=== PATIENT | female | born 1995 | race Caucasian/White ===

== ENCOUNTER 2017-10-21 19:40 | Emergency (ER) | payer OTHER ==
[2017-10-21] MEDS ORDERED: solu-MEDROL 125 MG IV ONE (20:06)
[2017-10-21] MEDS ORDERED: ATARAX 25 MG PO ONE (20:07)
[2017-10-21] MEDS ORDERED: ATARAX 25 MG ONE (20:11)
[2017-10-21] MEDS ORDERED: solu-MEDROL 125 MG ONE (20:11)
--- NOTE | 2017-10-21 20:13 | ERPHSYRPT ---
- History of Present Illness Time Seen by Provider: 10/21/17 20:00 Source: patient Exam Limitations: no limitations Patient Subjective Stated Complaint: had nexplenon implanted to right upper arm 2 weeks ago, since then has had rash that has slowly worsening Triage Nursing Assessment: rash to full body, itching and burning per pt, c/o soa over last 2 days Physician History: PT HAD A CONTROL DEVICE IMPLANTED IN HER RIGHT ARM 2 WEEKS AGO. LAST NIGHT PT DEVELOPED A RASH WHICH PROGRESSIVELY WORSENED TODAY WITH ITCHING AND SOME SHORTNESS OF AIR/TIGHTNESS IN THE NECK. PT DENIES CHEST PAIN, ABDOMINAL PAIN, NAUSEA, VOMITING. Allergies/Adverse Reactions: No Known Drug Allergies Allergy (Verified 06/02/16 08:29) Home Medications: Phentermine HCl [Adipex-P] 1 tab PO QDP PRN 10/21/17 [History] Hx Tetanus, Diphtheria Vaccination/Date Given: Yes Hx Influenza Vaccination/Date Given: No Hx Pneumococcal Vaccination/Date Given: No Immunizations Up to Date: Yes - Review of Systems Ears, Nose, & Throat: Other (TIGHTNESS IN THE NECK) Respiratory: Dyspnea Skin: Pruritis, Rash All Other Systems: Reviewed and Negative - Past Medical History Pertinent Past Medical History: Yes Neurological History: No Pertinent History ENT History: No Pertinent History Cardiac History: No Pertinent History Respiratory History: No Pertinent History Endocrine Medical History: No Pertinent History Musculoskeletal History: No Pertinent History GI Medical History: No Pertinent History History: Other Psycho-Social History: No Pertinent History Female Reproductive Disorders: No Pertinent History Other Medical History: frequent UTI's - Past Surgical History Past Surgical History: Yes Neuro Surgical History: No Pertinent History Cardiac: Cardiac Catheterization Respiratory: No Pertinent History Gastrointestinal: No Pertinent History Genitourinary: No Pertinent History Musculoskeletal: No Pertinent History Female Surgical History: No Pertinent History Other Surgical History: had hx of SVT approx age 11-12 rx x 1 h no further problems since then - Social History Smoking Status: Former smoker How long have you smoked: 4 yrs Exposure to second hand smoke: No Alcohol Use: None Drug Use: none Patient Lives Alone: No - Female History Hx Last Menstrual Period: 10/14/2017 Hx Now: No - Nursing Vital Signs Nursing Vital Signs: Initial Vital Signs Temperature 98.8 F 10/21/17 19:44 Pulse Rate 102 H 10/21/17 19:44 Respiratory Rate 20 10/21/17 19:44 Blood Pressure 116/76 10/21/17 19:44 O2 Sat by Pulse Oximetry 97 10/21/17 19:44 Pain Scale Pain Intensity 0 - Physical Exam General Appearance: alert Eye Exam: PERRL/EOMI Ears, Nose, Throat Exam: TMs normal, pharynx normal, moist mucous membranes, other (NO PHARYNGEAL EDEMA) Neck Exam: normal inspection Respiratory Exam: wheezing (MINIMAL EXPIRATORY WHEEZE OVER LEFT POSTERIOR FIELD) Cardiovascular Exam: normal heart sounds Gastrointestinal/Abdomen Exam: soft, normal bowel sounds Back Exam: normal range of motion Extremity Exam: other (IMPLANT PALPATED OVER THE DISTAL MEDIAL ASPECT OF THE RIGHT ARM AND WAS NON-TENDER AND WITHOUT EDEMA.) Neurologic Exam: alert, cooperative Skin Exam: rash (HIVES OVER TRUNK, NECK AND EXTREMITIES) SpO2 Interpretation: normal SpO2: 97 Oxygen Delivery: Room Air - Course Nursing assessment & vital signs reviewed: Yes Ordered Tests: Active Orders 24 hr Category Date Time Status IV Insertion STAT Care 10/21/17 20:06 Active Medication Summary Generic Name Dose Route Start Last Admin Trade Name Freq PRN Reason Stop Dose Admin Levalbuterol HCl 1.25 mg 10/21/17 20:19 Xopenex 1.25 Mg/0.5 Ml Ud Nebule IH 10/21/17 20:20 STAT ONE Discontinued Medications Generic Name Dose Route Start Last Admin Trade Name Freq PRN Reason Stop Dose Admin Hydroxyzine HCl 50 mg 10/21/17 20:07 10/21/17 20:16 Atarax 25 Mg PO 10/21/17 20:08 50 mg STAT ONE Administration Hydroxyzine HCl Confirm 10/21/17 20:11 Atarax 25 Mg Administered 10/21/17 20:12 Dose 50 mg .ROUTE .STK-MED ONE Methylprednisolone Sodium Succinate 125 mg 10/21/17 20:06 10/21/17 20:16 Solu-Medrol 125 Mg IV 10/21/17 20:07 125 mg STAT ONE Administration Methylprednisolone Sodium Succinate Confirm 10/21/17 20:11 Solu-Medrol 125 Mg Administered 10/21/17 20:12 Dose 125 mg .ROUTE .STK-MED ONE - Progress Discussed with Dr.: Khan (WILL COME IN TO SEE PT AND REMOVE CONTROL IMPLANT.) - Departure Time of Disposition: 20:22 Departure Disposition: Home Clinical Impression: ALLERGIC REACTION TO CONTROL IMPLANT Condition: Stable Critical Care Time: No Referrals: JOSE PICKENS MD [Primary Care Provider] - Instructions: Hives Additional Instructions: FOLLOW UP WITH PRIVATE DOCTOR TOMORROW. Prescriptions: Hydroxyzine HCl 25 mg [Atarax 25 mg] 25 mg PO Q4H PRN PRN #30 tablet PRN Reason: Itching Methylprednisolone [Medrol Dose Pack] 4 mg PO UD #1 pack
[2017-10-21] MEDS ORDERED: XYLOCAINE 1%/Epi 1:100000 MDV 20 ML ONE (20:18)
[2017-10-21] MEDS ORDERED: Xopenex 1.25 MG/0.5 ML UD NEBULE IH ONE ×2 (20:19→20:38)
[2017-10-21] MEDS ORDERED: XYLOCAINE 1% HCL 20 ML MDV ONE (20:23)
[2017-10-21] MEDS ORDERED: Sodium Chloride 3 ML UD NEBULES IH ONE (20:39)
[2017-10-21] MEDS ORDERED: XYLOCAINE 1% HCL 20 ML MDV IJ ONE (20:41)
[2017-10-21 20:51] VITALS: PULSE 86; O2SAT 98
[2017-10-21 20:59] VITALS: BP 105/59
--- NOTE | 2017-10-22 17:12 | PCM.NOTE ---
Date and Time: 10/22/171706 OBJECTIVE DATA Vital Signs: Vital Signs - 24 hr Temp Pulse Resp BP Pulse Ox 10/21/17 20:58 86 16 105/59 98 10/21/17 20:46 86 18 98 10/21/17 20:22 97 10/21/17 20:19 96 H 16 122/75 98 10/21/17 19:44 98.8 F 102 H 20 116/76 97 Pain Assessment - Last Documented Pain Intensity 0 Pain Scale Used 0-10 Pain Scale Intake and Output: Intake & Output 10/20/17 10/21/17 10/22/17 10/23/17 11:59 11:59 11:59 11:59 Weight 72.575 kg Assessment/Plan (1) Allergic reaction caused by a drug Status: Acute Assessment & Plan: this is a late entry note procedure preformed at 20:15 10/21/17 She was found to be having an allergic reaction only new medication or change was nexplanon placed 2 weeks ago. I was contacted by Dr. Evans to consult to remove in ED Discussed with patient and elected for removal. area was prepped with Chlorhexidine gluconate 1 mL of 1% lidocaine was used over the proximal end of the device for anesthesia 11 blade was used for stab wound and nexplanon was expressed intact with no complications the area was covered with steri strip and compresion bandage. Tolerated well with no complications. Discussed she is now fertile and could become and recommend f/u for discussion of other contraception options and remain abstinence or use condoms until then. Dr. Evans will finish treating her symptoms of allergic reaction. Code(s): T78.40XA - ALLERGY, UNSPECIFIED, INITIAL ENCOUNTER
== END 2017-10-21 20:59 | disposition home or self-care (01) ==
LOC: ED 19:40
DX: L50.9 Urticaria, unspecified (principal); T38.5X5A Adverse effect of other estrogens and progestogens, initial encounter
CPT/HCPCS: 36000; 94640; 96374; 99284; J2930; A9270-GY

== ENCOUNTER 2019-01-02 18:54 | Emergency (ER) | payer OTHER ==
[2019-01-02] MEDS ORDERED: Sodium Chloride 0.9% 1000 ML 1,000 ML IV SCH (19:45)
--- NOTE | 2019-01-02 19:56 | ERPHSYRPT ---
- History of Present Illness Time Seen by Provider: 01/02/19 19:35 Historian: patient Exam Limitations: clinical condition Patient Subjective Stated Complaint: Pelvic pain/flank pain Triage Nursing Assessment: Patient ambulated back to ED and transferred self to bed. Patient A+O X 3. Patient complains of pelvic and flank pain since this morning that is Patient states at times the pain is 10/10, but currently pain is 5/10. Patient's skin pink, warm and dry. Patient states she is unsure of last menstual cycle and was a month late on her depo shot. Patient denies dysuria or frequency. Physician History: PATIENT COMPLAINS OF LOWER ABDOMINAL PAIN AND LOW BACK PAIN TODAY. DENIES FEVER , NAUSEA, EMESIS, URINARY SYMPTOMS, DYSURIA, URGENCY, HEMATURIA. HAS MISSED HER DEPO INJECTION THIS PAST MONTH SINCE 11/08/2018. HAS CHRONIC BROWN VAGINAL DISCHARGE FOR YEARS. LAST MENSTRUAL PERIOD UNKNOWN WHILE DEPO INJECTIONS. Timing/Duration: today Activities at Onset: none Quality: cramping, stabbing Abdominal Pain Onset Location: flank, other (PELVIC) Pain Radiation: no radiation Severity of Pain-Max: moderate Severity of Pain-Current: moderate Modifying Factors: Improves With: nothing Associated Symptoms: back (PAIN) Previous symptoms: no prior history Allergies/Adverse Reactions: No Known Drug Allergies Allergy (Verified 01/02/19 19:29) Home Medications: Amphet Asp/Amphet/D-Amphet [Adderall 30 mg Tablet] 1 tab PO DAILY 01/02/19 [ History] Hx Tetanus, Diphtheria Vaccination/Date Given: Yes Hx Influenza Vaccination/Date Given: No Hx Pneumococcal Vaccination/Date Given: No Immunizations Up to Date: Yes - Review of Systems Constitutional: No Fever, No Chills Eyes: No Symptoms Ears, Nose, & Throat: No Symptoms Respiratory: No Symptoms, No Cough, No Dyspnea Cardiac: No Symptoms, No Chest Pain, No Edema, No Syncope Abdominal/Gastrointestinal: Other (PELVIC PAIN, CHRONIC VAGINAL DISCHARGE), No Abdominal Pain, No Nausea, No Vomiting, No Diarrhea Genitourinary Symptoms: Flank Pain, Vaginal Discharge, No Dysuria Musculoskeletal: No Symptoms, No Back Pain, No Neck Pain Skin: No Rash Neurological: No Dizziness, No Focal Weakness, No Sensory Changes Psychological: No Symptoms Endocrine: No Symptoms All Other Systems: Reviewed and Negative - Past Medical History Pertinent Past Medical History: Yes Neurological History: No Pertinent History ENT History: No Pertinent History Cardiac History: No Pertinent History Respiratory History: No Pertinent History Endocrine Medical History: No Pertinent History Musculoskeletal History: No Pertinent History GI Medical History: No Pertinent History History: Other Psycho-Social History: No Pertinent History Female Reproductive Disorders: No Pertinent History Other Medical History: frequent UTI's - Past Surgical History Past Surgical History: Yes Neuro Surgical History: No Pertinent History Cardiac: Cardiac Catheterization Respiratory: No Pertinent History Gastrointestinal: No Pertinent History Genitourinary: No Pertinent History Musculoskeletal: No Pertinent History Female Surgical History: No Pertinent History Other Surgical History: had hx of SVT approx age 11-12 rx x 1 h no further problems since then - Social History Smoking Status: Current every day smoker How long have you smoked: 4 yrs Exposure to second hand smoke: No Alcohol Use: None Drug Use: none Patient Lives Alone: No - Female History Hx Last Menstrual Period: unsure d/t depo injection Hx Now: (unsure) - Nursing Vital Signs Nursing Vital Signs: Initial Vital Signs Temperature 98.0 F 01/02/19 19:31 Pulse Rate 102 H 01/02/19 19:31 Respiratory Rate 18 01/02/19 19:31 Blood Pressure 106/72 01/02/19 19:31 O2 Sat by Pulse Oximetry 100 01/02/19 19:31 Pain Scale Pain Intensity 3 - Physical Exam General Appearance: no apparent distress, alert Eye Exam: PERRL/EOMI, eyes nml inspection Ears, Nose, Throat Exam: normal ENT inspection, pharynx normal, moist mucous membranes Neck Exam: normal inspection, non-tender, supple, full range of motion Respiratory Exam: normal breath sounds, lungs clear, No respiratory distress Cardiovascular Exam: regular rate/rhythm, normal heart sounds Gastrointestinal/Abdomen Exam: soft, normal bowel sounds, No tenderness ( SUPRAPUBIC TENDERNESS, LEFT LATERAL TO SUPRAPUBIC TENDERNESS), No mass Pelvic Exam: vaginal discharge (BROWN VAGINAL DISCHARGE, NORMAL SIZE UTERUS, NO CERVICAL MOTION TENDERNESS, LEFT ADNEXAL TENDENESS, NO PALPABLE MASSES) Back Exam: normal inspection, normal range of motion, No CVA tenderness, No vertebral tenderness Extremity Exam: normal inspection, normal range of motion, pelvis stable Neurologic Exam: alert, oriented x 3, cooperative, normal mood/affect, nml cerebellar function, sensation nml, No motor deficits Skin Exam: normal color, warm, dry SpO2 Interpretation: normal SpO2: 100 O2 Delivery: Room Air Ordered Tests: Active Orders 24 hr Category Date Time Status CBC W DIFF Stat Lab 01/02/19 19:44 Completed HCG,QUALITATIVE URINE Stat Lab 01/02/19 20:14 Completed UA W/RFX UR CULTURE Stat Lab 01/02/19 20:14 Completed Wet Prep Stat Lab 01/02/19 19:45 Completed Medication Summary Generic Name Dose Route Start Last Admin Trade Name Freq PRN Reason Stop Dose Admin Sodium Chloride 1,000 mls @ 250 mls/hr 01/02/19 19:45 01/02/19 20:18 Sodium Chloride 0.9% 1000 Ml IV 02/01/19 19:44 250 mls/hr .Q4H PETER Administration Discontinued Medications Generic Name Dose Route Start Last Admin Trade Name Freq PRN Reason Stop Dose Admin Ceftriaxone Sodium/Dextrose 1 g in 50 mls @ 100 mls/hr 01/02/19 21:51 22:31 Rocephin 1 Gm-D5w 50 Ml Bag IV 01/02/19 22:20 100 ml/hr STAT STA 100 mls/hr Administration Ketorolac Tromethamine 30 mg 01/02/19 20:48 01/02/19 21:13 Toradol 30 Mg Injection IV 01/02/19 20:49 30 mg STAT ONE Administration Ketorolac Tromethamine Confirm 01/02/19 21:11 Toradol 30 Mg Injection Administered 01/02/19 21:12 Dose 30 mg .ROUTE [email or web address] Lab/Rad Data: Laboratory Result Diagrams 01/02/19 19:44 01/02/19 20:00 Laboratory Results 01/02/19 01/02/19 01/02/19 Range/Units Unknown 20:14 20:14 WBC (4.0-10.5) K/mm3 RBC (4.1-5.4) M/mm3 Hgb (12.0-16.0) gm/dl Hct (35-47) % MCV (78-100) fl MCH (26-32) pg MCHC (32-36) g/dl RDW (11.5-14.0) % Plt Count (150-450) K/mm3 MPV (6-9.5) fl Gran % (36.0-66.0) % Eos # (Auto) (0-0.5) Absolute Lymphs (auto) (1.0-4.6) Absolute Monos (auto) (0.0-1.3) Lymphocytes % (24.0-44.0) % Monocytes % (0.0-12.0) % Eosinophils % (0.00-5.0) % Basophils % (0.0-0.4) % Absolute Granulocytes (1.4-6.9) Basophils # (0-0.4) Sodium Direct (138-146) mmol/L Potassium (3.5-4.9) mmol/L Chloride (98-109) mmol/L Carbon Dioxide (24-29) mmol/L Venous BUN (8-26) mg/dL Creatinine (0.6-1.3) mg/dL Glucose (70-105) mg/dL Ionized Calcium (1.12-1.32) mmol/L Urine Color YELLOW (YELLOW) Urine Appearance SLIGHTLY CLOUDY (CLEAR) Urine pH 6.0 (5-6) Ur Specific [place] 1.016 (1.005-1.025) Urine Protein NEGATIVE (Negative) Urine Ketones TRACE (NEGATIVE) Urine Blood SMALL (0-5) Abhishek/ul Urine Nitrite NEGATIVE (NEGATIVE) Urine Bilirubin NEGATIVE (NEGATIVE) Urine Urobilinogen NEGATIVE (0-1) mg/dL Ur Leukocyte Esterase SMALL (NEGATIVE) Urine WBC (Auto) 0-2 (0-5) /HPF Urine RBC (Auto) 0-2 (0-2) /HPF U Epithel Cells (Auto) RARE (FEW) /HPF Urine Bacteria (Auto) RARE (NEGATIVE) /HPF Urine Mucus (Auto) SLIGHT (NEGATIVE) /HPF Urine Culture Reflexed NO (NO) Urine Glucose NEGATIVE (NEGATIVE) mg/dL Urine HCG, Qual NEGATIVE (Negative) WBC (Wet Prep) RBC (Wet Prep) Epi Cells (Wet Prep) Bacteria (Wet Prep) Clue Cells (Wet Prep) Trichomonas (Wet Prep) Budding Yeast (Wet Prp) Chlamydia DNA (PCR) NEGATIVE N.gonorrhoeae DNA Probe NEGATIVE 01/02/19 01/02/19 01/02/19 Range/Units 20:00 19:45 19:44 WBC 7.2 (4.0-10.5) K/mm3 RBC 4.95 (4.1-5.4) M/mm3 Hgb 15.4 (12.0-16.0) gm/dl Hct 46.5 (35-47) % MCV 93.9 (78-100) fl MCH 31.1 (26-32) pg MCHC 33.1 (32-36) g/dl RDW 12.6 (11.5-14.0) % Plt Count 222 (150-450) K/mm3 MPV 10.6 H (6-9.5) fl Gran % 63.6 (36.0-66.0) % Eos # (Auto) 0.05 (0-0.5) Absolute Lymphs (auto) 1.96 (1.0-4.6) Absolute Monos (auto) 0.60 (0.0-1.3) Lymphocytes % 27.1 (24.0-44.0) % Monocytes % 8.3 (0.0-12.0) % Eosinophils % 0.7 (0.00-5.0) % Basophils % 0.3 (0.0-0.4) % Absolute Granulocytes 4.59 (1.4-6.9) Basophils # 0.02 (0-0.4) Sodium Direct 139 (138-146) mmol/L Potassium 3.7 (3.5-4.9) mmol/L Chloride 100 (98-109) mmol/L Carbon Dioxide 28 (24-29) mmol/L Venous BUN 12 (8-26) mg/dL Creatinine 0.8 (0.6-1.3) mg/dL Glucose 88 (70-105) mg/dL Ionized Calcium 1.18 (1.12-1.32) mmol/L Urine Color (YELLOW) Urine Appearance (CLEAR) Urine pH (5-6) Ur Specific [place] (1.005-1.025) Urine Protein (Negative) Urine Ketones (NEGATIVE) Urine Blood (0-5) Abhishek/ul Urine Nitrite (NEGATIVE) Urine Bilirubin (NEGATIVE) Urine Urobilinogen (0-1) mg/dL Ur Leukocyte Esterase (NEGATIVE) Urine WBC (Auto) (0-5) /HPF Urine RBC (Auto) (0-2) /HPF U Epithel Cells (Auto) (FEW) /HPF Urine Bacteria (Auto) (NEGATIVE) /HPF Urine Mucus (Auto) (NEGATIVE) /HPF Urine Culture Reflexed (NO) Urine Glucose (NEGATIVE) mg/dL Urine HCG, Qual (Negative) WBC (Wet Prep) None Seen RBC (Wet Prep) Rare Epi Cells (Wet Prep) Rare Bacteria (Wet Prep) Rare Clue Cells (Wet Prep) None Seen Trichomonas (Wet Prep) None Seen Budding Yeast (Wet Prp) None Seen Chlamydia DNA (PCR) N.gonorrhoeae DNA Probe - Progress Progress Note: 01/02/19 19:59 IV NORMAL SALINE 200ML/HR, TORADOL 30MG IV, ROCEPHIN 1GM IV, ALL LAB TEST REVIEWED AND ARE IN NORMAL LIMITS. 01/02/19 22:15 Counseled pt/family regarding: lab results, diagnosis, need for follow-up - Departure Time of Disposition: 22:54 Departure Disposition: Home ([id number]) Clinical Impression: PELVIC INFLAMMATORY DISEASE Condition: Stable Critical Care Time: No Referrals: TESSA JAY NP [Primary Care Provider] - Additional Instructions: ANTIBIOTIC DOXYCYCLINE 100MG TWICE DAILY FOR 10 DAYS. TORADOL 10MG EVERY 6 HOURS NEEDED FOR PAIN. CONSULT YOUR PRIMARY CARE PROVIDER FOR FOLLOWUP IN 1 WEEK. RETURN TO EMERGENCY FOR INCREASING PAIN. Prescriptions: Ketorolac Tromethamine [Toradol] 10 mg PO Q6HPRN PRN #20 tablet PRN Reason: Pain Doxycycline Hyclate 100 mg [Vibramycin 100 MG] 100 mg PO BID #20 tab
[2019-01-02] MEDS ORDERED: Sodium Chloride 0.9% 1000 ML 1,000 ML ONE (20:16)
[2019-01-02 20:46] LABS: Appearance SLIGHTLY CLOUDY (CLEAR); Bacteria RARE /HPF (NEGATIVE); Bilirubin NEGATIVE (NEGATIVE); Epithelial Cells RARE /HPF (FEW); Glucose NEGATIVE (NEGATIVE); Ketones TRACE (NEGATIVE); Mucus SLIGHT /HPF (NEGATIVE); Nitrite NEGATIVE (NEGATIVE); Protein,Urine Dip NEGATIVE (Negative); RBC 0-2 /HPF (0-2); Specific Gravity 1.016 (1.005-1.025); Urobilinogen NEGATIVE mg/dL (0-1); WBC 0-2 /HPF (0-5)
[2019-01-02 20:48] LABS: Leukocyte Esterase SMALL (NEGATIVE)
[2019-01-02] MEDS ORDERED: TORAdol 30 mg Injection IV ONE (20:48)
[2019-01-02 20:49] LABS: Blood SMALL Ery/ul (0-5)
[2019-01-02 20:49] LABS: BASOPHIL % 0.3 % (0.0-0.4); Basophil (Absolute #) 0.02 (0-0.4); Eosinophil % 0.7 % (0.00-5.0); Eosinophil (Absolute #) 0.05 (0-0.5); Granulocyte Absolute (ANC) 4.59 (1.4-6.9); Granulocytes % 63.6 % (36.0-66.0); Hematocrit 46.5 % (35-47); Hemoglobin 15.4 gm/dl (12.0-16.0); Lymphocyte (Absolute #) 1.96 (1.0-4.6); Lymphocytes % 27.1 % (24.0-44.0); Mean Cell Volume 93.9 fl (78-100); Mean Corpuscular Hemoglobin 31.1 pg (26-32); Mean Corpuscular Hgb Concent. 33.1 g/dl (32-36); Mean Platelet Volume 10.6 fl (6-9.5); Monocytes % 8.3 % (0.0-12.0); Platelet Count 222 K/mm3 (150-450); Red Blood Count 4.95 M/mm3 (4.1-5.4); Red Cell Distribution Width 12.6 % (11.5-14.0); White Blood Count 7.2 K/mm3 (4.0-10.5)
[2019-01-02] MEDS ORDERED: TORAdol 30 mg Injection ONE (21:11)
[2019-01-02 21:20] LABS: Bacteria Rare; Clue Cells None Seen; Red Blood Cells Rare; Trichomonas None Seen; White Blood Cells None Seen; Yeast None Seen
[2019-01-02] MEDS ORDERED: ROCEPHIN 1 Gm-D5w 50 ml Bag** 1 G/50 ML IVPB IV STA (21:51)
[2019-01-02 22:03] LABS: CHLAMYDIA DNA NEGATIVE; N GONORRHOEAE DNA NEGATIVE
[2019-01-02 22:58] VITALS: BP 100/63; PULSE 85; O2SAT 98
== END 2019-01-02 23:05 | disposition home or self-care (01) ==
LOC: ED 18:54
DX: N73.9 Female pelvic inflammatory disease, unspecified (principal)
CPT/HCPCS: 36415; 80047; 81001; 84703; 85025; 87210; 87490; 87590; 96360; 96365; 96374; 99284; J0696; J1885

== ENCOUNTER 2021-10-14 15:50 | Observation (INO) | payer BC ==
[~2021-10-14 15:50] MED LIST: MORPHINE SULFATE 10 MG/ML IV ONE
[2021-10-14] MEDS ORDERED: Zofran 4 MG/2 ML VIAL IV ONE (16:26)
[2021-10-14] MEDS ORDERED: Sodium Chloride 0.9% 1000 ML 1,000 ML IV STA (16:26)
[2021-10-14] MEDS ORDERED: MORPHINE SULFATE 4 MG INJ IV ONE ×2 (16:26→17:47)
[2021-10-14] MEDS ORDERED: MORPHINE SULFATE 4 MG INJ ONE (16:28)
[2021-10-14] MEDS ORDERED: Sodium Chloride 0.9% 1000 ML 1,000 ML ONE (16:28)
[2021-10-14] MEDS ORDERED: Zofran 4 MG/2 ML VIAL ONE ×2 (16:28→20:33)
--- NOTE | 2021-10-14 16:42 | ERPHSYRPT ---
- History of Present Illness Time Seen by Provider: 10/14/21 16:15 Historian: patient Exam Limitations: no limitations Patient Subjective Stated Complaint: Pt states that she began having left sided abdominal pain today that was got worse after she went to the gym Triage Nursing Assessment: Pt brought self to the ER, vitals wnl, rates pain as 10/10, pain on left side of abdomen, pulses normal, skin n/w/d, fingers going numb, hasn't eaten since yesterday, last bowel movement today, bowel sounds heard in all 4 quadrants Physician History: 46 years old female presented in the ER with chief complaint of sudden onset l eft-sided abdominal pain more in the left flank and left lower quadrant area, moderate to severe intensity, sharp nature. Patient report initially she had just mild to moderate pain and went to the gym and almost couple of hours ago it got worse currently 10/10 intensity, aggravated with movements palpation and no significant relieving factors, associated with nausea and couple of episodes of nonprojectile, nonbilious vomiting. Denies any history of kidney stones. Denies any urinary symptoms. Timing/Duration: hour(s) (2), constant, sudden, worse Activities at Onset: activity, rest Quality: sharpness Abdominal Pain Onset Location: LLQ, periumbilical, flank Pain Radiation: no radiation Severity of Pain-Max: severe Severity of Pain-Current: severe Modifying Factors: Worsens With: movement, palpation Associated Symptoms: nausea, vomiting, No fever/chills Previous symptoms: no prior history Allergies/Adverse Reactions: No Known Drug Allergies Allergy (Verified 10/14/21 16:12) Home Medications: Dextroamphetamine/Amphetamine [Adderall Xr 10 mg Capsule] 10 mg PO DAILY 10/14/21 [History] Hx Tetanus, Diphtheria Vaccination/Date Given: Yes Hx Influenza Vaccination/Date Given: No Hx Pneumococcal Vaccination/Date Given: No Travel Risk - International Travel Have you traveled outside of the country in past 3 weeks: No - Coronavirus Screening Are you exhibiting any of the following symptoms?: No Close contact with a COVID-19 positive Pt in past 14-21 Days: No - Vaccine Status Have you recieved a Covid-19 vaccination: No - Review of Systems Constitutional: No Symptoms Eyes: No Symptoms Ears, Nose, & Throat: No Symptoms Respiratory: No Symptoms Cardiac: No Symptoms Abdominal/Gastrointestinal: Abdominal Pain, Nausea, Vomiting Genitourinary Symptoms: No Symptoms Musculoskeletal: No Symptoms Skin: No Symptoms Neurological: No Symptoms Psychological: No Symptoms Endocrine: No Symptoms Hematologic/Lymphatic: No Symptoms Immunological/Allergic: No Symptoms - Past Medical History Pertinent Past Medical History: Yes Neurological History: No Pertinent History ENT History: No Pertinent History Cardiac History: No Pertinent History Respiratory History: No Pertinent History Endocrine Medical History: No Pertinent History Musculoskeletal History: No Pertinent History GI Medical History: No Pertinent History History: Other Psycho-Social History: No Pertinent History Female Reproductive Disorders: No Pertinent History Other Medical History: frequent UTI's - Past Surgical History Past Surgical History: Yes Neuro Surgical History: No Pertinent History Cardiac: Cardiac Catheterization Respiratory: No Pertinent History Gastrointestinal: No Pertinent History Genitourinary: No Pertinent History Musculoskeletal: No Pertinent History Female Surgical History: No Pertinent History Other Surgical History: had hx of SVT approx age 11-12 rx x 1 h no further problems since then - Social History Smoking Status: Former smoker How long have you smoked: 4 yrs Exposure to second hand smoke: No Alcohol Use: None Drug Use: none Patient Lives Alone: No - Female History Hx Now: No (unsure) - Nursing Vital Signs Nursing Vital Signs: Initial Vital Signs Temperature 97.2 F 10/14/21 16:02 Pulse Rate 78 10/14/21 16:02 Blood Pressure 114/88 10/14/21 16:02 O2 Sat by Pulse Oximetry 100 10/14/21 16:02 Pain Scale Pain Intensity 8 - Physical Exam General Appearance: no apparent distress, alert Eye Exam: PERRL/EOMI Ears, Nose, Throat Exam: normal ENT inspection Neck Exam: normal inspection, supple, full range of motion Respiratory Exam: normal breath sounds, lungs clear Cardiovascular Exam: regular rate/rhythm, normal heart sounds Gastrointestinal/Abdomen Exam: tenderness (Left flank/left lower quadrant/periumbilical area guarding but no rebound tenderness.), No normal bowel sounds Back Exam: normal inspection, normal range of motion, CVA tenderness (Left) Extremity Exam: normal inspection, normal range of motion Neurologic Exam: alert, oriented x 3, cooperative, sheet fed printer II-XII nml as tested Skin Exam: normal color SpO2 Interpretation: normal SpO2: 100 O2 Delivery: Room Air Ordered Tests: Medication Summary Discontinued Medications Generic Name Dose Route Start Last Admin Trade Name Freq PRN Reason Stop Dose Admin Acetaminophen 650 mg 01/01/22 07:43 Acetaminophen 325 Mg Tablet PO 11/14/21 07:42 Q4H PRN PRN temp > 100 Hydrocodone Bitart/Acetaminophen 1 tab 10/14/21 22:48 10/15/21 09:19 Hydrocodone/Apap 5/325 Mg Tablet PO 10/19/21 22:47 1 tab Q4H PRN PRN Administration PAIN Azithromycin 2,000 mg 10/14/21 18:04 10/14/21 18:09 Azithromycin 250 Mg Tablet PO 10/14/21 18:05 Not Given STAT ONE Bupivacaine HCl Confirm 10/14/21 19:59 Bupivacaine Hcl 2.5 Mg/Ml 10 Ml Administered 10/14/21 20:00 Dose 10 ml .ROUTE .STK-MED ONE Dexamethasone Sodium Phosphate Confirm 10/14/21 20:33 Dexamethasone Sod Phosphate 4 Mg/Ml Ml Administered 10/14/21 20:34 Dose 8 mg .ROUTE .STK-MED ONE Fentanyl Citrate Confirm 10/14/21 20:33 Fentanyl Citrate 100 Mcg/2 Ml* Vial Administered 10/14/21 20:34 Dose 100 mcg .ROUTE .STK-MED ONE Gentamicin Sulfate 240 mg 10/14/21 18:03 10/14/21 18:09 Gentamicin Sulfate 80 Mg/2 Ml Vial IM 10/14/21 18:04 Not Given STAT ONE Hydromorphone HCl 1 mg 10/14/21 19:12 10/14/21 19:18 Hydromorphone 1 Mg/1ml Inj 1 Mg/Ml Syringe IV 10/14/21 19:13 1 mg STAT ONE Administration Hydromorphone HCl Confirm 10/14/21 19:16 Hydromorphone 1 Mg/1ml Inj 1 Mg/Ml Syringe Administered 10/14/21 19:17 Dose 1 mg .ROUTE .STK-MED ONE Sodium Chloride 1,000 mls @ 999 mls/hr 10/14/21 16:26 10/14/21 17:53 Sodium Chloride 0.9% 1000 Ml IV 10/14/21 17:26 Infused .Q1H1M STA Infusion Sodium Chloride Confirm 10/14/21 16:28 Sodium Chloride 0.9% 1000 Ml Administered 10/14/21 16:29 Dose 1,000 mls @ ud .ROUTE .STK-MED ONE Doxycycline Hyclate 100 mg/ 100 mls @ 100 mls/hr 10/14/21 22:00 10/14/21 18:48 Dextrose IV 11/13/21 21:59 100 mls/hr Q12HT PETER Administration Ceftriaxone Sodium/Dextrose 2 g in 50 mls @ 100 mls/hr 10/14/21 18:33 10/14/21 19:38 Rocephin 2 Gm-D5w 50ml Bag IV 10/14/21 19:02 Infused STAT STA Infusion Ceftriaxone Sodium/Dextrose Confirm 10/14/21 18:38 Rocephin 2 Gm-D5w 50ml Bag Administered 10/14/21 18:39 Dose 2 g in 50 mls @ ud IV .STK-MED ONE Metronidazole 500 mg in 100 mls @ 200 mls/hr 10/14/21 19:01 10/14/21 21:24 Flagyl 500 Mg Ivpb IV 10/14/21 19:30 Infused STAT STA Infusion Metronidazole Confirm 10/14/21 19:17 Flagyl 500 Mg Ivpb Administered 10/14/21 19:18 Dose 500 mg in 100 mls @ ud IV .STK-MED ONE Lactated Ringer's Confirm 10/14/21 22:22 Lactated Ringers Administered 10/14/21 22:23 Dose 1,000 mls @ ud IV .STK-MED ONE Dextrose/Lactated Ringer's 1,000 mls @ 100 mls/hr 10/14/21 23:00 Dextrose 5%-Lr Iv Solution 1000 Ml IV 11/13/21 22:59 .Q10H PETER Potassium Chloride/Dextrose/Sod Cl 1,000 mls @ 100 mls/hr 10/14/21 23:00 10/15/21 09:16 D5w/0.45ns W/ 20meq Kcl 1000 Ml IV 11/13/21 22:59 100 mls/hr .Q10H PETER Administration Doxycycline Hyclate 100 mg/ 100 mls @ 100 mls/hr 10/15/21 10:00 10/15/21 09: 16 Dextrose IV 11/14/21 09:59 100 mls/hr Q12HT PETER Administration Ketorolac Tromethamine 30 mg 10/14/21 17:47 10/14/21 18:40 Ketorolac Tromethamine 30 Mg/Ml Inj IV 10/14/21 17:48 30 mg STAT ONE Administration Ketorolac Tromethamine Confirm 10/14/21 18:38 Ketorolac Tromethamine 30 Mg/Ml Inj Administered 10/14/21 18:39 Dose 30 mg .ROUTE .STK-MED ONE Ketorolac Tromethamine Confirm 10/14/21 20:33 Ketorolac Tromethamine 30 Mg/Ml Inj Administered 10/14/21 20:34 Dose 30 mg .ROUTE .STK-MED ONE Lidocaine HCl Confirm 10/14/21 20:33 Lidocaine - Mpf 2% 5 Ml Vial Administered 10/14/21 20:34 Dose 5 ml .ROUTE .STK-MED ONE Morphine Sulfate 4 mg 10/14/21 16:26 10/14/21 16:32 Morphine Sulfate 4 Mg/Ml Injection IV 10/14/21 16:27 4 mg STAT ONE Administration Morphine Sulfate Confirm 10/14/21 16:28 Morphine Sulfate 4 Mg/Ml Injection Administered 10/14/21 16:29 Dose 4 mg .ROUTE .STK-MED ONE Morphine Sulfate 4 mg 10/14/21 17:47 10/14/21 18:47 Morphine Sulfate 4 Mg/Ml Injection IV 10/14/21 17:48 Not Given STAT ONE Morphine Sulfate Confirm 10/14/21 22:22 Morphine Sulfate 10 Mg/Ml Injection Administered 10/14/21 22:23 Dose 10 mg .ROUTE .STK-MED ONE Morphine Sulfate 4 mg 10/14/21 22:47 10/15/21 02:23 Morphine Sulfate 4 Mg/Ml Injection IV 10/19/21 22:46 4 mg Q4H PRN PRN Administration PAIN Ondansetron HCl 4 mg 10/14/21 16:26 10/14/21 16:32 Ondansetron Hcl 4 Mg/2 Ml Vial IV 10/14/21 16:27 4 mg STAT ONE Administration Ondansetron HCl Confirm 10/14/21 16:28 Ondansetron Hcl 4 Mg/2 Ml Vial Administered 10/14/21 16:29 Dose 4 mg .ROUTE .STK-MED ONE Ondansetron HCl Confirm 10/14/21 20:33 Ondansetron Hcl 4 Mg/2 Ml Vial Administered 10/14/21 20:34 Dose 4 mg .ROUTE .STK-MED ONE Ondansetron HCl 4 mg 10/14/21 22:58 Ondansetron Hcl 4 Mg/2 Ml Vial IV 11/13/21 22:57 Q6H PRN PRN NAUSEA/VOMITING Propofol Confirm 10/14/21 20:33 Propofol 10 Mg/Ml 20ml Vial Administered 10/14/21 20:34 Dose 200 mg IV .STK-MED ONE Rocuronium Eagle Confirm 10/14/21 20:33 Rocuronium Eagle 100 Mg/10ml Vial Administered 10/14/21 20:34 Dose 40 mg .ROUTE .STK-MED ONE Sugammadex Sodium Confirm 10/14/21 20:33 Sugammadex Sodium 200 Mg/2 Ml Vial Administered 10/14/21 20:34 Dose 200 mg IV .STK-MED ONE Lab/Rad Data: Laboratory Result Diagrams 10/14/21 16:38 10/14/21 16:38 Laboratory Results 10/14/21 10/14/21 10/14/21 Range/Units 20:14 16:38 16:38 WBC 10.1 (4.0-10.5) K/mm3 RBC 5.08 (4.1-5.4) M/mm3 Hgb 15.8 (12.0-16.0) gm/dl Hct 47.7 H (35-47) % MCV 93.9 (78-100) fl MCH 31.1 (26-32) pg MCHC 33.1 (32-36) g/dl RDW 12.9 (11.5-14.0) % Plt Count 252 (150-450) K/mm3 MPV 9.8 (7.5-11.0) fl Segmented Neutrophils 81 H (36.0-66.0) % Lymphocytes (Manual) 9 L (24-44) % Monocytes (Manual) 3 (0.0-12.0) % Atypical Lymphocytes 7 % Platelet Estimate NORMAL (NORMAL) RBC Morphology NORMAL Sodium 134 L (137-145) mmol/L Potassium 4.0 (3.5-5.1) mmol/L Chloride 100 (98-107) mmol/L Carbon Dioxide 20 L (22-30) mmol/L Anion Gap 18.0 H (5-15) MEQ/L BUN 12 (7-17) mg/dL Creatinine 0.67 (0.52-1.04) mg/dL Estimated GFR > 60.0 ML/MIN Glucose 75 (74-106) mg/dL Calcium 9.5 (8.4-10.2) mg/dL Total Bilirubin 0.80 (0.2-1.3) mg/dL AST 35 (14-36) U/L ALT 32 (0-35) U/L Alkaline Phosphatase 65 (38-126) U/L Serum Total Protein 7.1 (6.3-8.2) g/dL Albumin 4.7 (3.5-5.0) g/dL Lipase 36 (23-300) U/L Urine Color (YELLOW) Urine Appearance (CLEAR) Urine pH (5-6) Ur Specific [place] (1.005-1.025) Urine Protein (Negative) Urine Ketones (NEGATIVE) Urine Blood (0-5) Abhishek/ul Urine Nitrite (NEGATIVE) Urine Bilirubin (NEGATIVE) Urine Urobilinogen (0-1) mg/dL Ur Leukocyte Esterase (NEGATIVE) Urine WBC (Auto) (0-5) /HPF Urine RBC (Auto) (0-2) /HPF U Epithel Cells (Auto) (FEW) /HPF Urine Bacteria (Auto) (NEGATIVE) /HPF Urine Mucus (Auto) (NEGATIVE) /HPF Urine Culture Reflexed (NO) Urine Glucose (NEGATIVE) mg/dL Urine HCG, Qual (Negative) Influenza Type A Ag NEGATIVE (NEGATIVE) Influenza Type B Ag NEGATIVE (NEGATIVE) RSV (PCR) NEGATIVE (Negative) SARS-CoV-2 (PCR) POSITIVE A (NEGATIVE) 10/14/21 10/14/21 Range/Units 16:26 16:26 WBC (4.0-10.5) K/mm3 RBC (4.1-5.4) M/mm3 Hgb (12.0-16.0) gm/dl Hct (35-47) % MCV (78-100) fl MCH (26-32) pg MCHC (32-36) g/dl RDW (11.5-14.0) % Plt Count (150-450) K/mm3 MPV (7.5-11.0) fl Segmented Neutrophils (36.0-66.0) % Lymphocytes (Manual) (24-44) % Monocytes (Manual) (0.0-12.0) % Atypical Lymphocytes % Platelet Estimate (NORMAL) RBC Morphology Sodium (137-145) mmol/L Potassium (3.5-5.1) mmol/L Chloride (98-107) mmol/L Carbon Dioxide (22-30) mmol/L Anion Gap (5-15) MEQ/L BUN (7-17) mg/dL Creatinine (0.52-1.04) mg/dL Estimated GFR ML/MIN Glucose (74-106) mg/dL Calcium (8.4-10.2) mg/dL Total Bilirubin (0.2-1.3) mg/dL AST (14-36) U/L ALT (0-35) U/L Alkaline Phosphatase (38-126) U/L Serum Total Protein (6.3-8.2) g/dL Albumin (3.5-5.0) g/dL Lipase (23-300) U/L Urine Color YELLOW (YELLOW) Urine Appearance CLOUDY (CLEAR) Urine pH 5.0 (5-6) Ur Specific [place] 1.023 (1.005-1.025) Urine Protein 30 (Negative) Urine Ketones MODERATE (NEGATIVE) Urine Blood NEGATIVE (0-5) Abhishek/ul Urine Nitrite NEGATIVE (NEGATIVE) Urine Bilirubin NEGATIVE (NEGATIVE) Urine Urobilinogen NEGATIVE (0-1) mg/dL Ur Leukocyte Esterase LARGE (NEGATIVE) Urine WBC (Auto) 26-50 (0-5) /HPF Urine RBC (Auto) 11-15 (0-2) /HPF U Epithel Cells (Auto) MODERATE (FEW) /HPF Urine Bacteria (Auto) MODERATE (NEGATIVE) /HPF Urine Mucus (Auto) SLIGHT (NEGATIVE) /HPF Urine Culture Reflexed YES (NO) Urine Glucose NEGATIVE (NEGATIVE) mg/dL Urine HCG, Qual NEGATIVE (Negative) Influenza Type A Ag (NEGATIVE) Influenza Type B Ag (NEGATIVE) RSV (PCR) (Negative) SARS-CoV-2 (PCR) (NEGATIVE) - Progress Progress Note: Has negative ultrasound per preliminary report for poor urine. CT abdomen pelvis is pending, patient is given symptomatic treatment, on reevaluation feeling better. Care is transferred to Dr. Springer at shift change. - Departure Clinical Impression: Acute appendicitis, COVID-19 Condition: Stable Critical Care Time: No
[2021-10-14 16:46] LABS: Hematocrit 47.7 % (35-47); Hemoglobin 15.8 gm/dl (12.0-16.0); Mean Cell Volume 93.9 fl (78-100); Mean Corpuscular Hemoglobin 31.1 pg (26-32); Mean Corpuscular Hgb Concent. 33.1 g/dl (32-36); Mean Platelet Volume 9.8 fl (7.5-11.0); Platelet Count 252 K/mm3 (150-450); Red Blood Count 5.08 M/mm3 (4.1-5.4); Red Cell Distribution Width 12.9 % (11.5-14.0); White Blood Count 10.1 K/mm3 (4.0-10.5)
[2021-10-14 17:10] LABS: ALBUMIN 4.7 g/dL (3.5-5.0); ALKALINE PHOSPHATASE 65 U/L (38-126); BLOOD UREA NITROGEN 12 mg/dL (7-17); CHLORIDE 100 mmol/L (98-107); Calcium 9.5 mg/dL (8.4-10.2); Carbon Dioxide 20 mmol/L (22-30); Creatinine 1 0.67 mg/dL (0.52-1.04); EST GLOMERULAR FILTRATION RATE > 60.0 ML/MIN; Glucose 75 mg/dL (74-106); LIPASE 36 U/L (23-300); SGOT/AST 35 U/L (14-36); SGPT/ALT 32 U/L (0-35); SODIUM 134 mmol/L (137-145); Total Protein 7.1 g/dL (6.3-8.2)
--- NOTE | 2021-10-14 17:22 | XRAY ---
Indication: Pelvic pain. Two-dimensional transabdominal pelvic sonogram performed. Comparison: None Urinary bladder not adequately distended producing poor acoustic window. Uterus anteverted measuring 8.7 x 4.2 x 4.5 cm. No focal solid/cystic uterine mass. Endometrial stripe measures 7.3 mm. No endometrial cavity mass or fluid collection. Right ovary measures 3.1 x 3.0 x 2.7 cm and the left measures 2.2 x 2.7 x 1.6 cm. Normal perfusion bilaterally. No suspicious adnexal mass or free fluid. Impression: Negative transabdominal pelvic sonogram.
[2021-10-14 17:23] LABS: Lymphocytes 9 % (24-44); Neutrophils 81 % (36.0-66.0); Total Cells Counted 100
[2021-10-14 17:24] LABS: ATYPICAL LYMPHS 7 %; Monocyte 3 % (0.0-12.0); Platelet Estimate NORMAL (NORMAL)
[2021-10-14 17:46] LABS: Appearance CLOUDY (CLEAR); Bacteria MODERATE /HPF (NEGATIVE); Bilirubin NEGATIVE (NEGATIVE); Blood NEGATIVE Ery/ul (0-5); Epithelial Cells MODERATE /HPF (FEW); Glucose NEGATIVE (NEGATIVE); Ketones MODERATE (NEGATIVE); Leukocyte Esterase LARGE (NEGATIVE); Mucus SLIGHT /HPF (NEGATIVE); Nitrite NEGATIVE (NEGATIVE); Protein,Urine Dip 30 (Negative); Specific Gravity 1.023 (1.005-1.025); Urobilinogen NEGATIVE mg/dL (0-1); WBC 26-50 /HPF (0-5)
[2021-10-14] MEDS ORDERED: TORAdol 30 mg Injection IV ONE (17:47)
[2021-10-14] MEDS ORDERED: GARAMYCIN INJ IM ONE (18:03)
[2021-10-14] MEDS ORDERED: Zithromax 250 MG TABLET PO ONE (18:04)
[2021-10-14] MEDS: VIBRAMYCIN 100 MG*** 100 MG in Dextrose 5%/Water IV Soln. 100ML PLUS BAG 100 ML IV SCH ×2 (18:09→18:48)
[2021-10-14] MEDS ORDERED: ROCEPHIN 2 Gm-D5w 50ML BAG** 2 G/50 ML IVPB IV STA (18:33)
[2021-10-14] MEDS ORDERED: TORAdol 30 mg Injection ONE ×2 (18:38→20:33)
[2021-10-14] MEDS ORDERED: ROCEPHIN 2 Gm-D5w 50ML BAG** 2 G/50 ML IVPB IV ONE (18:38)
[2021-10-14] MEDS ORDERED: FLAGYL 500 MG IVPB 500 MG/100 ML BAG IV STA (19:01)
--- NOTE | 2021-10-14 19:07 | XRAY ---
Indication: Periumbilical pain. Multiple contiguous axial images obtained through the abdomen and pelvis using 80 cc Isovue 370 contrast. Comparison: None Lung bases demonstrates minimal bilateral peripheral patchy airspace disease. No effusion. Heart not enlarged. Noncontrasted stomach and bowel loops appear nonobstructed. Abnormal distended appendix up to 12 mm with minimal periappendiceal stranding favoring acute appendicitis. Tiny cul-de-sac fluid presumed physiologic from rupture/leaking cyst. No free air. Remaining liver, gallbladder, pancreas, spleen, adrenal glands, kidneys, ureters, bladder, uterus, and aorta are unremarkable. No pathologic retroperitoneal lymphadenopathy. Osseous structures intact. Impression: 1. CT findings favoring acute appendicitis. No complications. 2. Tiny physiologic cul-de-sac fluid. 3. Minimal bibasilar peripheral patchy airspace disease. Rule out Covid 19 pneumonia. Comment: Telephone report given to Dr. Arriola [id number] hrs Oct 14, 2021.
[2021-10-14] MEDS ORDERED: Hydromorphone 1 mg/ml Injection IV ONE (19:12)
[2021-10-14] MEDS ORDERED: Hydromorphone 1 mg/ml Injection ONE (19:16)
[2021-10-14] MEDS ORDERED: FLAGYL 500 MG IVPB 500 MG/100 ML BAG IV ONE (19:17)
[2021-10-14] MEDS ORDERED: Sensorcaine 0.25% 10 ML ONE (19:59)
[2021-10-14] MEDS ORDERED: DIPRIVAN 200 MG/20 ML IV ONE (20:33)
[2021-10-14] MEDS ORDERED: Zemuron 100 MG/10 ML ONE (20:33)
[2021-10-14] MEDS ORDERED: SUBLIMAZE 100 MCG/2 ML ONE (20:33)
[2021-10-14] MEDS ORDERED: Decadron 4 MG INJ ONE (20:33)
[2021-10-14] MEDS ORDERED: Xylocaine-Mpf 2% 5 Ml Vial ONE (20:33)
[2021-10-14] MEDS ORDERED: BRIDION 200MG/2ML IV ONE (20:33)
[2021-10-14 21:13] LABS: INFLUENZA A NEGATIVE (NEGATIVE); INFLUENZA B NEGATIVE (NEGATIVE); RESPIRATORY SYNCTIAL VIRUS NEGATIVE (Negative)
[2021-10-14 21:24] LABS: SARS-CoV-2 Xpert Express POSITIVE (NEGATIVE)
[2021-10-14] MEDS ORDERED: Lactated Ringers 1,000 ML IV ONE (22:22)
[2021-10-14] MEDS ORDERED: MORPHINE SULFATE 10 MG/ML ONE (22:22)
[2021-10-14] MEDS ORDERED: MORPHINE SULFATE 4 MG INJ IV PRN (22:47)
[2021-10-14] MEDS ORDERED: Zofran 4 MG/2 ML VIAL IV PRN (22:58)
[2021-10-14] MEDS ORDERED: Dextrose 5%-Lr IV Solution 1000 ML 1,000 ML IV SCH (23:00)
[2021-10-14] MEDS: NORCO 5/325 MG PO PRN (23:06)
[2021-10-14] MEDS: D5W/0.45NS W/ 20mEq KCl 1000 ML 1,000 ML IV SCH (23:07)
[2021-10-15] MEDS ORDERED: TYLENOL 325 MG PO PRN (07:43)
[2021-10-15 08:04] VITALS: BP 94/55
[2021-10-15] MEDS: D5W/0.45NS W/ 20mEq KCl 1000 ML 1,000 ML IV SCH (09:16)
[2021-10-15] MEDS: NORCO 5/325 MG PO PRN (09:19)
[2021-10-15] MEDS ORDERED: VIBRAMYCIN 100 MG*** 100 MG in Dextrose 5%/Water IV Soln. 100ML PLUS BAG 100 ML IV SCH (10:00)
[2021-10-15 11:35] VITALS: PULSE 90
[2021-10-15 19:22] VITALS: O2SAT 100
--- NOTE | 2021-10-17 09:49 | HP ---
CHIEF COMPLAINT: Acute appendicitis. HISTORY OF PRESENT ILLNESS: The patient is a 26-year-old who came to the emergency room complaining of right lower quadrant abdominal pain. She had a positive CT for appendicitis and I was see her in consultation for surgical management. PAST MEDICAL HISTORY: Positive for bronchitis. PAST SURGICAL HISTORY: Unremarkable. REVIEW OF SYSTEMS: Negative for cardiovascular, neurological or symptoms. SOCIAL HISTORY: She denies any alcohol, tobacco or drug use. PHYSICAL EXAMINATION: She is alert and oriented. HEENT: Pupils are equal and normoreactive. NECK: Supple. COR: Regular rhythm. ABDOMEN: Soft, tender in the right lower quadrant. EXTREMITIES: Within normal limits and no pedal edema. IMPRESSION: Acute appendicitis by clinical and radiological findings. Plan is to proceed with laparoscopic appendectomy possible open.
--- NOTE | 2021-10-17 09:57 | OP ---
SURGERY DATE/TIME: 10/14/2021 PREOPERATIVE DIAGNOSIS: Acute appendicitis. POSTOPERATIVE DIAGNOSIS: Acute appendicitis. PROCEDURE: Laparoscopic appendectomy. SURGEON: Ward Schuler M.D. ANESTHESIA: General. ESTIMATED BLOOD LOSS: Minimal. COMPLICATIONS: None. INDICATIONS: This 26-year-old came through the emergency room complaining of right lower quadrant abdominal pain. She was taken to surgery for laparoscopic appendectomy which was done without complication. DESCRIPTION OF PROCEDURE AND FINDINGS: The patient was taken to the OR, placed on the operating table in supine position. The abdomen was prepped and draped in the usual sterile fashion. A small supraumbilical incision was made. The Veress needle was introduced. The abdomen was insufflated with CO2 and the trocar was placed using the Visiport. The camera was introduced and the remaining ports placed under direct laparoscopic vision. The appendix was exposed. The appendix was dissected and then was controlled with LigaSure. The mesoappendix was divided and then a RAGHAV stapler was fired at the base of the appendix. The appendix was introduced into EndoCatch bag and was removed from the 12 mm trocar site without difficulty. After this was done the trocar was then re-inserted and hemostasis inspected and when this was satisfactory the pneumoperitoneum was released and the trocars removed. The 10 mm trocar site was closed with 0 Vicryl for the fascia and 4-0 Vicryl to close the skin edge in subcuticular fashion. Dressing was applied. The patient tolerated this procedure well and was taken back to the recovery area in overall stable condition.
== END 2021-10-15 11:30 | disposition home or self-care (01) ==
LOC: ED 15:50 → MED SURG 22:32
PROVIDERS: ADMIT Surgery; ATTEND Family Medicine
DX: K35.80 Unspecified acute appendicitis (principal); J40 Bronchitis, not specified as acute or chronic; Z20.828 Contact with and (suspected) exposure to other viral communicable diseases
CPT/HCPCS: 0241U; 36000; 36415; 44970; 74177; 76856; 80053; 81001; 83690; 84703; 85025; 87086; 93268; 96360; 96365; 96367; 96374; 96375; 99285; G0378; 99140; J0696; J1100; J1170; J1885; J2270; J2405; J2704; J3010; A9270-GY

== ENCOUNTER 2022-07-20 10:12 | Emergency (ER) | payer OTHER ==
--- NOTE | 2022-07-20 11:11 | ERPHSYRPT ---
- History of Present Illness Time Seen by Provider: 07/20/22 11:07 Historian: patient Exam Limitations: no limitations Physician History: Patient is a 26-year-old female G2, P1, A0 M0 presents to emergency department for evaluation of chest pain, mild shortness of breath and an occasional dry cough x 1 day. Patient is COVID-positive. Patient tested COVID-positive this morning. patient was referred to our ED by her TRADE PROMOTION ANALYST physician. Patient states she has been experiencing intermittent chest pain. Pain comes on randomly and not associated with exertion. Pain lasted under a minute. No associated nausea vomiting or diaphoresis. Patient states her mother had a heart attack when she was in her 40s. Patient otherwise feels well. She is healthy. Patient currently 25 weeks . Patient currently asymptomatic. She has no complaints regarding her . No vaginal discharge. No active chest pain. Symptoms are mild to moderate in intensity when present. Patient voices no other complaints or concerns at this time. Portions of this note were created with voice recognition technology. There may be grammatical, spelling, punctuation or sound alike errors Timing/Duration: yesterday Activities at Onset: none Location: other (Left chest no radiation) Chest Pain Radiation: no radiation Severity of Pain-Max: moderate Modifying Factors: Improves With: nothing Associated Symptoms: denies symptoms Prior Chest Pain/Cardiac Workup: no prior chest pain Nitro Today/Relief: no nitro taken today Aspirin Treatment Today: no aspirin today Allergies/Adverse Reactions: No Known Drug Allergies Allergy (Verified 10/14/21 16:12) Home Medications: Dextroamphetamine/Amphetamine [Adderall Xr 10 mg Capsule] 10 mg PO DAILY 10/14/21 [History] Hx Tetanus, Diphtheria Vaccination/Date Given: Yes Hx Influenza Vaccination/Date Given: No Hx Pneumococcal Vaccination/Date Given: No Travel Risk - Vaccine Status Have you recieved a Covid-19 vaccination: No - Review of Systems Constitutional: No Symptoms, No Fever, No Chills Eyes: No Symptoms Ears, Nose, & Throat: No Symptoms Respiratory: No Symptoms, No Cough, No Dyspnea Cardiac: No Symptoms, No Chest Pain, No Edema, No Syncope Abdominal/Gastrointestinal: No Symptoms, No Abdominal Pain, No Nausea, No Vomiting, No Diarrhea Genitourinary Symptoms: No Symptoms, No Dysuria Musculoskeletal: No Symptoms, No Back Pain, No Neck Pain Skin: No Symptoms, No Rash Neurological: No Symptoms, No Dizziness, No Focal Weakness, No Sensory Changes Psychological: No Symptoms Endocrine: No Symptoms Hematologic/Lymphatic: No Symptoms Immunological/Allergic: No Symptoms All Other Systems: Reviewed and Negative - Past Medical History Pertinent Past Medical History: Yes Neurological History: No Pertinent History ENT History: No Pertinent History Cardiac History: No Pertinent History Respiratory History: No Pertinent History Endocrine Medical History: No Pertinent History Musculoskeletal History: No Pertinent History GI Medical History: No Pertinent History History: Other Psycho-Social History: No Pertinent History Female Reproductive Disorders: No Pertinent History Other Medical History: frequent UTI's - Past Surgical History Past Surgical History: Yes Neuro Surgical History: No Pertinent History Cardiac: Cardiac Catheterization Respiratory: No Pertinent History Gastrointestinal: No Pertinent History Genitourinary: No Pertinent History Musculoskeletal: No Pertinent History Female Surgical History: No Pertinent History Other Surgical History: had hx of SVT approx age 11-12 rx x 1 h no further problems since then - Social History Smoking Status: Former smoker How long have you smoked: 4 yrs Exposure to second hand smoke: No Alcohol Use: None Drug Use: none Patient Lives Alone: No - Female History Hx Now: Yes - Nursing Vital Signs Nursing Vital Signs: Initial Vital Signs Temperature 97.0 F 07/20/22 10:12 Pulse Rate 74 07/20/22 10:12 Respiratory Rate 18 07/20/22 10:12 Blood Pressure 99/60 07/20/22 10:12 O2 Sat by Pulse Oximetry 98 07/20/22 10:12 Pain Scale Pain Intensity 3 - Physical Exam General Appearance: no apparent distress, alert Eye Exam: PERRL/EOMI, eyes nml inspection Ears, Nose, Throat Exam: normal ENT inspection, TMs normal, pharynx normal, moist mucous membranes Neck Exam: normal inspection, non-tender, supple, full range of motion Respiratory Exam: normal breath sounds, lungs clear, airway intact, No respiratory distress Cardiovascular Exam: regular rate/rhythm, normal heart sounds, normal peripheral pulses Gastrointestinal/Abdomen Exam: soft, normal bowel sounds, No tenderness, No mass Back Exam: normal inspection, No CVA tenderness, No vertebral tenderness Extremity Exam: normal inspection, normal range of motion Neurologic Exam: alert, oriented x 3, cooperative, normal mood/affect, sensation nml, No motor deficits Skin Exam: normal color, warm, dry Lymphatic Exam: No adenopathy SpO2 Interpretation: normal SpO2: 98 O2 Delivery: Room Air - Course Nursing assessment & vital signs reviewed: Yes EKG Interpreted by Me: RATE (79), Sinus Rhythm, NORMAL AXIS, NORMAL INTERVALS - Radiology Exams Chest X-ray Interpretation: Teleradiologist Report (Negative chest x-ray) Ordered Tests: Active Orders 24 hr Category Date Time Status Rotary Dump Operator STAT Care 07/20/22 11:04 Active EKG-ER Only STAT Care 07/20/22 10:49 Active IV Insertion STAT Care 07/20/22 11:04 Active Pulse Oximetry (ED) STAT Care 07/20/22 11:04 Active CHEST 1 VIEW (PORTABLE) Stat Exams 07/20/22 10:48 Completed CBC W DIFF Stat Lab 07/20/22 10:59 Completed CMP Stat Lab 07/20/22 10:59 Completed CULTURE,URINE Stat Lab 07/20/22 12:22 Received NT PRO BNP Stat Lab 07/20/22 10:59 Completed TROPONIN Q4H Lab 07/20/22 10:59 Completed TROPONIN Q4H Lab 07/20/22 13:00 Completed TROPONIN Q4H Lab 07/20/22 19:00 Ordered UA W/RFX CULTURE Stat Lab 07/20/22 12:22 Completed Medication Summary Discontinued Medications Generic Name Dose Route Start Last Admin Trade Name Freq PRN Reason Stop Dose Admin Nitrofurantoin Macrocrystals 100 mg 07/20/22 13:55 07/20/22 13:59 Nitrofurantoin Macro 100 Mg Capsule PO 07/20/22 13:56 100 mg STAT ONE Administration Nitrofurantoin Macrocrystals Confirm 07/20/22 13:58 Nitrofurantoin Macro 100 Mg Capsule Administered 07/20/22 13:59 Dose 100 mg .ROUTE .[employer] ONE Lab/Rad Data: Laboratory Result Diagrams 07/20/22 10:59 07/20/22 10:59 Laboratory Results 07/20/22 07/20/22 07/20/22 Range/Units 13:00 12:22 10:59 WBC (4.0-10.5) x10^3/uL RBC (4.1-5.4) x10^6/uL Hgb (12.0-16.0) g/dL Hct (35-47) % MCV (78-100) fL MCH (26-32) pg MCHC (32-36) g/dL RDW (11.5-14.0) % Plt Count (150-450) x10^3/uL MPV (7.5-11.0) fL Gran % (36.0-66.0) % Immature Gran % (Auto) (0.00-0.4) % Nucleat RBC Rel Count (0.00-0.1) % Eos # (Auto) (0-0.5) x10^3/uL Immature Gran # (Auto) (0.00-0.03) x10^3u/L Absolute Lymphs (auto) (1.0-4.6) x10^3/uL Absolute Monos (auto) (0.0-1.3) x10^3/uL Absolute Nucleated RBC (0.00-0.01) x10^3u/L Lymphocytes % (24.0-44.0) % Monocytes % (0.0-12.0) % Eosinophils % (0.00-5.0) % Basophils % (0.0-0.4) % Absolute Granulocytes (1.4-6.9) x10^3/uL Basophils # (0-0.4) x10^3/uL Sodium (137-145) mmol/L Potassium (3.5-5.1) mmol/L Chloride (98-107) mmol/L Carbon Dioxide (22-30) mmol/L Anion Gap (5-15) MEQ/L BUN (7-17) mg/dL Creatinine (0.52-1.04) mg/dL Estimated GFR ML/MIN Glucose (74-106) mg/dL Calcium (8.4-10.2) mg/dL Total Bilirubin (0.2-1.3) mg/dL AST (14-36) U/L ALT (0-35) U/L Alkaline Phosphatase (38-126) U/L Troponin I < 0.012 < 0.012 (0.000-0.034) ng/mL NT-Pro-B Natriuret Pep (0-450) pg/mL Serum Total Protein (6.3-8.2) g/dL Albumin (3.5-5.0) g/dL Urinalys Dipstick Clnc MAIN LAB Urine Color YELLOW (YELLOW) Urine Appearance CLOUDY (CLEAR) Urine pH 7.5 (5-6) Ur Specific [address] 1.020 (1.005-1.025) POC Urine Protein Conf NEGATIVE (Negative) Urine Ketones SMALL-15 (NEGATIVE) Urine Nitrite NEGATIVE (NEGATIVE) Urine Bilirubin NEGATIVE (NEGATIVE) Urine Urobilinogen 0.2 (0-1) mg/dL Urine Leukocytes LARGE (NEGATIVE) Urine WBC (Auto) 11-15 (0-5) /HPF Urine RBC (Auto) NONE SEEN (0-2) /HPF U Epithel Cells (Auto) PACKED (FEW) /HPF Urine Bacteria (Auto) RARE (NEGATIVE) /HPF Urine RBC NEGATIVE (0-5) Abhishek/ul Urine Mucus (Auto) SLIGHT (NEGATIVE) /HPF Ur Culture Indicated? YES Urine Glucose NEGATIVE (NEGATIVE) mg/dL 07/20/22 07/20/22 Range/Units 10:59 10:59 WBC 8.5 (4.0-10.5) x10^3/uL RBC 3.56 L (4.1-5.4) x10^6/uL Hgb 11.3 L (12.0-16.0) g/dL Hct 34.6 L (35-47) % MCV 97.2 (78-100) fL MCH 31.7 (26-32) pg MCHC 32.7 (32-36) g/dL RDW 12.6 (11.5-14.0) % Plt Count 244 (150-450) x10^3/uL MPV 10.0 (7.5-11.0) fL Gran % 78.1 H (36.0-66.0) % Immature Gran % (Auto) 0.4 (0.00-0.4) % Nucleat RBC Rel Count 0.0 (0.00-0.1) % Eos # (Auto) 0.02 (0-0.5) x10^3/uL Immature Gran # (Auto) 0.03 (0.00-0.03) x10^3u/L Absolute Lymphs (auto) 1.45 (1.0-4.6) x10^3/uL Absolute Monos (auto) 0.35 (0.0-1.3) x10^3/uL Absolute Nucleated RBC 0.00 (0.00-0.01) x10^3u/L Lymphocytes % 17.0 L (24.0-44.0) % Monocytes % 4.1 (0.0-12.0) % Eosinophils % 0.2 (0.00-5.0) % Basophils % 0.2 (0.0-0.4) % Absolute Granulocytes 6.65 (1.4-6.9) x10^3/uL Basophils # 0.02 (0-0.4) x10^3/uL Sodium 134 L (137-145) mmol/L Potassium 3.7 (3.5-5.1) mmol/L Chloride 106 (98-107) mmol/L Carbon Dioxide 22 (22-30) mmol/L Anion Gap 9.4 (5-15) MEQ/L BUN 5 L (7-17) mg/dL Creatinine 0.45 L (0.52-1.04) mg/dL Estimated GFR > 60.0 ML/MIN Glucose 73 L (74-106) mg/dL Calcium 8.3 L (8.4-10.2) mg/dL Total Bilirubin 0.30 (0.2-1.3) mg/dL AST 16 (14-36) U/L ALT 11 (0-35) U/L Alkaline Phosphatase 68 (38-126) U/L Troponin I (0.000-0.034) ng/mL NT-Pro-B Natriuret Pep 98.1 (0-450) pg/mL Serum Total Protein 6.1 L (6.3-8.2) g/dL Albumin 3.3 L (3.5-5.0) g/dL Urinalys Dipstick Clnc Urine Color (YELLOW) Urine Appearance (CLEAR) Urine pH (5-6) Ur Specific [place] [address] (1.005-1.025) POC Urine Protein Conf (Negative) Urine Ketones (NEGATIVE) Urine Nitrite (NEGATIVE) Urine Bilirubin (NEGATIVE) Urine Urobilinogen (0-1) mg/dL Urine Leukocytes (NEGATIVE) Urine WBC (Auto) (0-5) /HPF Urine RBC (Auto) (0-2) /HPF U Epithel Cells (Auto) (FEW) /HPF Urine Bacteria (Auto) (NEGATIVE) /HPF Urine RBC (0-5) Abhishek/ul Urine Mucus (Auto) (NEGATIVE) /HPF Ur Culture Indicated? Urine Glucose (NEGATIVE) mg/dL - Progress Progress: improved Air Movement: good Progress Note: Patient reassessed. She feels well. Patient has no chest pain. No indication for D-dimer. Patient has no calf pain. PERC rule negative. Troponin negative x2. EKG normal sinus rhythm. No ischemic changes. Chest x-ray negative. Case discussed with patient's TRADE PROMOTION ANALYST who sent patient to our ED. Patient does have a urinary tract infection has observed on today's urinalysis. She received a dose of Macrobid. A prescription for Macrobid was forwarded to patient's pharmacy. Patient agrees to follow-up with TRADE PROMOTION ANALYST physician within 48 hours for evaluation. Portions of this note were created with voice recognition technology. There may be grammatical, spelling, punctuation or sound alike errors 07/20/22 14:13 Blood Culture(s) Obtained: No Antibiotics given: No Discussed with Dr.: Bigg Will see patient in: office Counseled pt/family regarding: lab results, diagnosis, need for follow-up, rad results - Departure Departure Disposition: Home Clinical Impression: Chest pain, Cough, COVID, UTI (urinary tract infection) Condition: Stable Critical Care Time: No Referrals: TESSA JAY, WALLPAPER HANGER HELPER [Primary Care Provider] - Follow up/PCP as directed Instructions: COVID-19 and Additional Instructions: Discharge/Care Plan DANILO BACA was seen on 07/20/22 in the Emergency Room. The patient was counseled regarding Diagnosis,Lab results, Imaging studies, need for follow up and when to return to the Emergency Room. Prescriptions given: Discharge Note I have spoken with the patient and/or caregivers. I have explained the patient's condition, diagnosis and treatment plan based on the information available to me at this time. I have answered the patient's and/or caregiver's questions and addressed any concerns. The patient and/or caregivers have as good understanding of the patient's diagnosis, condition and treatment plan as can be expected at this point. The vital signs have been stable. The patient's condition is stable and appropriate for discharge from the emergency department. The patient will pursue further outpatient evaluation with the primary care physician or other designated or consulting physician as outlined in the discharge instructions. The patient and/or caregivers are agreeable to this plan of care and follow-up instructions have been explained in detail. The patient and/or caregivers have received these instruction. The patient/and or caregivers are aware that any significant change in condition or worsening of symptoms should prompt an immediate return to this or the closest emergency department or call 911. Prescriptions: Nitrofurantoin Macro 100 mg [Macrobid 100MG Capsule] 100 mg PO BID 7 Days #14 cap
[2022-07-20 11:12] LABS: Absolute Neutrophil Ct (ANC) 6.65 x10^3/uL (1.4-6.9); Basophil (Absolute #) 0.02 x10^3/uL (0-0.4); Eosinophil % 0.2 % (0.00-5.0); Eosinophil (Absolute #) 0.02 x10^3/uL (0-0.5); Hematocrit 34.6 % (35-47); Hemoglobin 11.3 g/dL (12.0-16.0); Lymphocyte (Absolute #) 1.45 x10^3/uL (1.0-4.6); Mean Cell Volume 97.2 fL (78-100); Mean Corpuscular Hemoglobin 31.7 pg (26-32); Mean Corpuscular Hgb Concent. 32.7 g/dL (32-36); Monocyte (Absolute #) 0.35 x10^3/uL (0.0-1.3); Monocytes % 4.1 % (0.0-12.0); Neutrophil % 78.1 % (36.0-66.0); Platelet Count 244 x10^3/uL (150-450); Red Blood Count 3.56 x10^6/uL (4.1-5.4); Red Cell Distribution Width 12.6 % (11.5-14.0); White Blood Count 8.5 x10^3/uL (4.0-10.5)
[2022-07-20 11:26] LABS: ALBUMIN 3.3 g/dL (3.5-5.0); ALKALINE PHOSPHATASE 68 U/L (38-126); ANION GAP 9.4 MEQ/L (5-15); BLOOD UREA NITROGEN 5 mg/dL (7-17); CHLORIDE 106 mmol/L (98-107); Calcium 8.3 mg/dL (8.4-10.2); Carbon Dioxide 22 mmol/L (22-30); Creatinine 1 0.45 mg/dL (0.52-1.04); EST GLOMERULAR FILTRATION RATE > 60.0 ML/MIN; Glucose 73 mg/dL (74-106); NT PRO BNP 98.1 pg/mL (0-450); Potassium 3.7 mmol/L (3.5-5.1); SGOT/AST 16 U/L (14-36); SGPT/ALT 11 U/L (0-35); SODIUM 134 mmol/L (137-145); Total Protein 6.1 g/dL (6.3-8.2)
--- NOTE | 2022-07-20 11:44 | XRAY ---
Indication: Chest pain short of breath. 25 weeks . Comparison: July 14, 2014 Portable chest obtained with abdomen shielded. Lungs inflated and remains clear. Heart not enlarged. Bony thorax intact. No new/acute findings.
[2022-07-20 12:48] LABS: Appearance CLOUDY (CLEAR); Bilirubin NEGATIVE (NEGATIVE); Glucose NEGATIVE (NEGATIVE); Ketones SMALL-15 (NEGATIVE); RBC NEGATIVE Ery/ul (0-5)
[2022-07-20 12:49] LABS: Dipstick done @ ? MAIN LAB; Nitrite NEGATIVE (NEGATIVE); Ph 7.5 (5-6); Protein,Urine Dip NEGATIVE (Negative); Urobilinogen 0.2 mg/dL (0-1)
[2022-07-20 13:01] LABS: Epithelial Cells PACKED /HPF (FEW); Mucus SLIGHT /HPF (NEGATIVE)
[2022-07-20 13:41] LABS: Bacteria RARE /HPF (NEGATIVE); RBC NONE SEEN /HPF (0-2); Urine Cultured Indicated? YES
[2022-07-20] MEDS ORDERED: Macrobid 100MG Capsule PO ONE (13:55)
[2022-07-20] MEDS ORDERED: Macrobid 100MG Capsule ONE (13:58)
[2022-07-20 14:06] VITALS: BP 91/53; PULSE 80
[2022-07-20 14:12] VITALS: O2SAT 98
== END 2022-07-20 14:19 | disposition home or self-care (01) ==
LOC: ED 10:12
DX: O98.512 Other viral diseases complicating pregnancy, second trimester (principal); U07.1 COVID-19; O23.42 Unspecified infection of urinary tract in pregnancy, second trimester; N39.0 Urinary tract infection, site not specified; Z3A.25 25 weeks gestation of pregnancy; R07.9 Chest pain, unspecified; R05.1 Acute cough; R06.02 Shortness of breath; Z79.899 Other long term (current) drug therapy; Z28.310 Unvaccinated for COVID-19
CPT/HCPCS: 36000; 36415; 71045; 80053; 81015; 83880; 84484; 85025; 87086; 93005; 93041; 94760; 99284; A9270-GY

== ENCOUNTER 2022-09-25 13:31 | Observation (INO) | payer OTHER ==
[2022-09-25 14:14] VITALS: BP 100/60; PULSE 89
[2022-09-25 15:08] LABS: Amphetamine,Urine NEGATIVE (NEGATIVE); Barbiturate,Urine NEGATIVE (NEGATIVE); Benzodiazepine,Urine NEGATIVE (NEGATIVE); Cocaine,Urine NEGATIVE (NEGATIVE); Methadone,Urine NEGATIVE (NEGATIVE); Opiate,Urine NEGATIVE (NEGATIVE); PCP,Urine NEGATIVE (NEGATIVE); THC,Urine NEGATIVE (NEGATIVE)
[2022-09-25 15:33] LABS: Appearance CLEAR (CLEAR); Bilirubin NEGATIVE (NEGATIVE); Dipstick done @ ? MAIN LAB; Glucose NEGATIVE (NEGATIVE); Ketones NEGATIVE (NEGATIVE); Nitrite NEGATIVE (NEGATIVE); Protein,Urine Dip NEGATIVE (Negative); RBC NEGATIVE Ery/ul (0-5); Specific Gravity 1.015 (1.005-1.025); Urobilinogen 0.2 mg/dL (0-1)
[2022-09-25 15:35] LABS: Bacteria RARE /HPF (NEGATIVE); Epithelial Cells RARE /HPF (FEW); RBC 0-2 /HPF (0-2); Urine Cultured Indicated? NO
== END 2022-09-25 15:45 | disposition home or self-care (01) ==
LOC: OB 13:31
PROVIDERS: ADMIT Obstetrics & Gynecology; ATTEND Obstetrics & Gynecology
DX: Z34.83 Encounter for supervision of other normal pregnancy, third trimester (principal); Z3A.33 33 weeks gestation of pregnancy
CPT/HCPCS: 80307; 81015; 84112; G0378

== ENCOUNTER 2022-11-01 19:33 | Observation (INO) | payer OTHER ==
[2022-11-01 20:16] LABS: Appearance Clear (Clear); Bacteria None Seen /HPF (None Seen); Bilirubin Negative (Negative); Blood Moderate (Negative); Epithelial Cells Few /HPF (None Seen); Glucose, Urine 500 mg/dL (Negative); Hyaline Casts NONE SEEN /LPF (0-2); Ketones 40 (Negative); Leukocyte Esterase Moderate (Negative); Nitrite Negative (Negative); Protein,Urine Dip Negative (Negative); RBC 0-2 /HPF (0-5); Specific Gravity 1.015 (1.005-1.030); WBC 21-50 /HPF (0-5)
[2022-11-01 20:17] LABS: ADD URINE CULTURE? YES (NO)
[2022-11-01 20:18] VITALS: BP 110/71; PULSE 102; O2SAT 97
== END 2022-11-01 21:03 | disposition home or self-care (01) ==
LOC: OB 19:33
PROVIDERS: ADMIT Obstetrics & Gynecology; ATTEND Obstetrics & Gynecology
DX: Z34.83 Encounter for supervision of other normal pregnancy, third trimester (principal); Z3A.38 38 weeks gestation of pregnancy
CPT/HCPCS: 81001; 84112; 87086; G0378

== ENCOUNTER 2022-11-03 04:00 | Inpatient (IN) | payer OTHER ==
[~2022-11-03 04:00] MED LIST changes: +BRETHINE 1 MG/ML SQ PRN; -MORPHINE SULFATE 10 MG/ML IV ONE
[2022-11-03] MEDS ORDERED: miSOPROStoL PO SCH (15:00)
[2022-11-03] MEDS ORDERED: Zofran 4 MG/2 ML VIAL IV PRN (17:00)
[2022-11-03] MEDS: CYTOTEC PO SCH ×5 (17:28→23:31)
[2022-11-03 17:59] LABS: Absolute Neutrophil Ct (ANC) 5.88 x10^3/uL (1.4-6.9); BASOPHIL % 0.1 % (0.0-0.4); Basophil (Absolute #) 0.01 x10^3/uL (0-0.4); Eosinophil % 0.2 % (0.00-5.0); Eosinophil (Absolute #) 0.02 x10^3/uL (0-0.5); Hematocrit 33.7 % (35-47); IMMATURE GRAN # 0.04 x10^3u/L (0.00-0.03); IMMATURE GRAN % 0.5 % (0.00-0.4); Lymphocyte (Absolute #) 1.68 x10^3/uL (1.0-4.6); Lymphocytes % 20.7 % (24.0-44.0); Mean Cell Volume 89.9 fL (78-100); Mean Corpuscular Hemoglobin 29.3 pg (26-32); Mean Corpuscular Hgb Concent. 32.6 g/dL (32-36); Mean Platelet Volume 10.6 fL (7.5-11.0); Monocytes % 6.2 % (0.0-12.0); Neutrophil % 72.3 % (36.0-66.0); Platelet Count 240 x10^3/uL (150-450); Red Blood Count 3.75 x10^6/uL (4.1-5.4); Red Cell Distribution Width 12.5 % (11.5-14.0); White Blood Count 8.1 x10^3/uL (4.0-10.5)
[2022-11-03] MEDS ORDERED: STADOL 2 MG IV PRN (18:00)
[2022-11-03 18:40] LABS: Amphetamine,Urine NEGATIVE (NEGATIVE); Barbiturate,Urine NEGATIVE (NEGATIVE); Benzodiazepine,Urine NEGATIVE (NEGATIVE); Cocaine,Urine NEGATIVE (NEGATIVE); Methadone,Urine NEGATIVE (NEGATIVE); Opiate,Urine NEGATIVE (NEGATIVE); PCP,Urine NEGATIVE (NEGATIVE); THC,Urine NEGATIVE (NEGATIVE)
[2022-11-03 20:10] LABS: ABO TYPING O; RH TYPING NEGATIVE
[2022-11-03 20:11] LABS: Antibody Screen POSITIVE (NEGATIVE)
[2022-11-03] MEDS: STADOL 2 MG IV PRN (23:30)
[2022-11-04] MEDS: CYTOTEC PO SCH ×3 (01:27→05:25)
[2022-11-04] MEDS: STADOL 2 MG IV PRN (03:28)
[2022-11-04] MEDS ORDERED: Ephedrine Sulfate 50 MG/ML IV PRN (06:00)
[2022-11-04] MEDS ORDERED: Lactated Ringers 1,000 ML IV ONE (06:00)
[2022-11-04] MEDS ORDERED: FENTANYL 2 MCG-BUPIV 0.125%-NS 250 ML Epidur 250 ML EPIDURAL SCH (06:00)
[2022-11-04] MEDS: Lactated Ringers 1,000 ML IV SCH (06:15)
[2022-11-04] MEDS ORDERED: XYLOCAINE 1% HCL 20 ML MDV ONE (07:31)
[2022-11-04] MEDS ORDERED: Sensorcaine 0.25% 10 ML ONE (07:33)
[2022-11-04] MEDS ORDERED: PITOCIN 30 UNITS/ LR 500 ML 30 UNITS/500 ML PLAST..BAG IV SCH ×2 (09:00→10:00)
[2022-11-04] MEDS ORDERED: XYLOCAINE 1% HCL 20 ML MDV IJ PRN (10:00)
[2022-11-04] MEDS ORDERED: CORTISONE 1% CREAM TP PRN (12:00)
[2022-11-04] MEDS ORDERED: TUCKS TP PRN (12:00)
[2022-11-04] MEDS ORDERED: MOTRIN 400 MG PO PRN (15:00)
[2022-11-04] MEDS ORDERED: Mylicon 80MG PO PRN (16:00)
[2022-11-04] MEDS ORDERED: Dermoplast Spray TP PRN (18:00)
[2022-11-04] MEDS: TYLENOL EXTRA STRENGTH 500 MG PO PRN (18:01)
[2022-11-04] MEDS ORDERED: Ambien 10 MG PO PRN (22:00)
[2022-11-05] MEDS: TYLENOL EXTRA STRENGTH 500 MG PO PRN ×3 (00:52→15:42)
[2022-11-05 06:28] LABS: Absolute Neutrophil Ct (ANC) 7.59 x10^3/uL (1.4-6.9); BASOPHIL % 0.2 % (0.0-0.4); Basophil (Absolute #) 0.02 x10^3/uL (0-0.4); Eosinophil % 0.8 % (0.00-5.0); Eosinophil (Absolute #) 0.09 x10^3/uL (0-0.5); Hematocrit 29.6 % (35-47); Hemoglobin 9.6 g/dL (12.0-16.0); IMMATURE GRAN # 0.05 x10^3u/L (0.00-0.03); IMMATURE GRAN % 0.4 % (0.00-0.4); Lymphocyte (Absolute #) 3.13 x10^3/uL (1.0-4.6); Lymphocytes % 26.8 % (24.0-44.0); Mean Cell Volume 88.6 fL (78-100); Mean Corpuscular Hemoglobin 28.7 pg (26-32); Mean Corpuscular Hgb Concent. 32.4 g/dL (32-36); Mean Platelet Volume 10.8 fL (7.5-11.0); Monocyte (Absolute #) 0.78 x10^3/uL (0.0-1.3); Monocytes % 6.7 % (0.0-12.0); Neutrophil % 65.1 % (36.0-66.0); Platelet Count 224 x10^3/uL (150-450); Red Blood Count 3.34 x10^6/uL (4.1-5.4); Red Cell Distribution Width 12.6 % (11.5-14.0); White Blood Count 11.7 x10^3/uL (4.0-10.5)
--- NOTE | 2022-11-05 09:54 | PCM.NOTE ---
Date and Time: 11/05/22 0950 Subjective Assessment: ppd 1 sp pt resting in bed and states passing clots with significant cramping. vss afebrile abd; soft uterus; firm lochia; mild hgb; 9.6 a/p sp ppd with bleeding will proceed with suction d&c at this time. pt noted having significant retained clots in uterus and vaginal region OBJECTIVE DATA Vital Signs: Vital Signs - 24 hr Temp Pulse Resp BP BP Pulse Ox 11/05/22 02:00 98.3 F 60 20 100/59 98 11/04/22 19:56 98.5 F 78 16 93/57 96 11/04/22 14:00 98.6 F 61 20 103/63 96 11/04/22 13:45 98.6 F 61 20 103/63 96 11/04/22 12:45 82 18 99/56 96 11/04/22 12:30 82 18 99/56 97 11/04/22 12:15 60 20 105/60 97 11/04/22 12:00 71 20 106/61 98 11/04/22 11:45 97.5 F 101 H 20 160/71 97 11/04/22 11:15 68 20 106/51 11/04/22 11:00 84 20 120/59 11/04/22 10:45 97.8 F 59 L 20 11/04/22 10:30 97.8 F 59 L 20 11/04/22 10:24 70 20 101/57 11/04/22 10:15 63 20 109/65 11/04/22 09:58 64 20 109/65 Pain Assessment - Last Documented Pain Intensity [Anterior/ 3 Posterior] Pain Intensity [Posterior] 8 Pain Intensity 4 Pain Scale [facility] Intake and Output: Intake & Output 11/02/22 11/03/22 11/04/22 11/05/22 11:59 11:59 11:59 11:59 Intake Total 2375 1800 Output Total 240 700 Balance 2135 1100 Weight 79.379 kg Lab Results: Lab Results-Last 24 Hours 11/05/22 Range/Units 06:12 WBC 11.7 H (4.0-10.5) x10^3/uL RBC 3.34 L (4.1-5.4) x10^6/uL Hgb 9.6 L (12.0-16.0) g/dL Hct 29.6 L (35-47) % MCV 88.6 (78-100) fL MCH 28.7 (26-32) pg MCHC 32.4 (32-36) g/dL RDW 12.6 (11.5-14.0) % Plt Count 224 (150-450) x10^3/uL MPV 10.8 (7.5-11.0) fL Gran % 65.1 (36.0-66.0) % Immature Gran % (Auto) 0.4 (0.00-0.4) % Nucleat RBC Rel Count 0.0 (0.00-0.1) % Eos # (Auto) 0.09 (0-0.5) x10^3/uL Immature Gran # (Auto) 0.05 H (0.00-0.03) x10^3u/L Absolute Lymphs (auto) 3.13 (1.0-4.6) x10^3/uL Absolute Monos (auto) 0.78 (0.0-1.3) x10^3/uL Absolute Nucleated RBC 0.00 (0.00-0.01) x10^3u/L Lymphocytes % 26.8 (24.0-44.0) % Monocytes % 6.7 (0.0-12.0) % Eosinophils % 0.8 (0.00-5.0) % Basophils % 0.2 (0.0-0.4) % Absolute Granulocytes 7.59 H (1.4-6.9) x10^3/uL Basophils # 0.02 (0-0.4) x10^3/uL Assessment/Plan (1) Vaginal delivery Current Visit: Yes Status: Acute Code(s): O80 - ENCOUNTER FOR FULL-TERM UNCOMPLICATED DELIVERY (2) bleeding Current Visit: Yes Status: Acute Code(s): O72.1 - OTHER IMMEDIATE HEMORRHAGE
[2022-11-05] MEDS ORDERED: Adacel Vial IM ONE (10:00)
[2022-11-05] MEDS ORDERED: FERREX 150 PO SCH (10:00)
[2022-11-05] MEDS ORDERED: Docusate Sodium 100 MG PO SCH (10:00)
[2022-11-05] MEDS ORDERED: Lactated Ringers 1,000 ML IV ONE ×2 (10:04→11:01)
[2022-11-05] MEDS ORDERED: Pepcid 20 MG VIAL IV SCH (10:15)
[2022-11-05] MEDS ORDERED: Reglan 10 MG/2 ML IV SCH (10:15)
[2022-11-05] MEDS ORDERED: SOD CITRATE-CITRIC ACID SOLN PO SCH (10:15)
[2022-11-05] MEDS ORDERED: Versed 2 MG/2 ML Injection ONE (10:42)
[2022-11-05] MEDS ORDERED: SUBLIMAZE 100 MCG/2 ML ONE (10:42)
[2022-11-05] MEDS ORDERED: Quelicin Fliptop 200 MG/10 ML ONE (10:42)
[2022-11-05] MEDS ORDERED: DIPRIVAN 200 MG/20 ML IV ONE (10:42)
[2022-11-05] MEDS ORDERED: Xylocaine-Mpf 2% 5 Ml Vial ONE (10:45)
[2022-11-05] MEDS ORDERED: TORAdol 30 mg Injection ONE (11:06)
[2022-11-05] MEDS ORDERED: CEFAZOLIN 2 GM-D5W BAG** 2 GM/50 ML ML IV ONE (11:17)
--- NOTE | 2022-11-05 11:19 | PCM.DS ---
Discharge Summary Date of Admission: 11/04/22 04:00 Admitting Physician: MIR YORK DO Consults: Consults on Case 11/03/22 17:00 Notify Anesthesia Provider ROUTINE 11/04/22 12:58 Navigation ONCE Primary Care Provider: TESSA JAY Allergies Allergies etonogestrel [From Nexplanon] Adverse Reaction (Severe, Verified 11/03/22 18:40) Hives control implant in arm caused full body hives. Hospital Summary - Hospital Course Hospital Course: pt admitted on nov 03 for induction at 39 wks gestation and was started on cytotec and subsequently received epidural on nov 04 and pitocin started and then delivered live baby girl without complication in am via . during period was noted passing significant clots and was subsequently taken to or to perform suction d&c for which significant placental tissue was retrieved and clots removed. after procedure pt was at this time stable for discharge. pt was advised to fu in office in 3 wks for care and all questions answered to her satisfaction. pt given ancef 2gm after postop procedure. stable hgb at 9.5 prior to discharge. - Vitals & Intake/Output Vital Signs: Vital Signs Temperature 98.2 F 11/05/22 10:07 Pulse Rate 64 11/05/22 10:07 Respiratory Rate 18 11/05/22 10:07 Blood Pressure 94/51 11/05/22 10:07 O2 Sat by Pulse Oximetry 98 11/05/22 10:07 Intake & Output: Intake & Output 11/02/22 11/03/22 11/04/22 11/05/22 11:59 11:59 11:59 11:59 Intake Total 2375 1800 Output Total 240 700 Balance 2135 1100 Weight 79.379 kg 79.379 kg - Lab Result Diagrams: 11/05/22 06:12 Lab Results-Last 24 Hrs: Lab Results-Last 24 Hours 11/05/22 Range/Units 06:12 WBC 11.7 H (4.0-10.5) x10^3/uL RBC 3.34 L (4.1-5.4) x10^6/uL Hgb 9.6 L (12.0-16.0) g/dL Hct 29.6 L (35-47) % MCV 88.6 (78-100) fL MCH 28.7 (26-32) pg MCHC 32.4 (32-36) g/dL RDW 12.6 (11.5-14.0) % Plt Count 224 (150-450) x10^3/uL MPV 10.8 (7.5-11.0) fL Gran % 65.1 (36.0-66.0) % Immature Gran % (Auto) 0.4 (0.00-0.4) % Nucleat RBC Rel Count 0.0 (0.00-0.1) % Eos # (Auto) 0.09 (0-0.5) x10^3/uL Immature Gran # (Auto) 0.05 H (0.00-0.03) x10^3u/L Absolute Lymphs (auto) 3.13 (1.0-4.6) x10^3/uL Absolute Monos (auto) 0.78 (0.0-1.3) x10^3/uL Absolute Nucleated RBC 0.00 (0.00-0.01) x10^3u/L Lymphocytes % 26.8 (24.0-44.0) % Monocytes % 6.7 (0.0-12.0) % Eosinophils % 0.8 (0.00-5.0) % Basophils % 0.2 (0.0-0.4) % Absolute Granulocytes 7.59 H (1.4-6.9) x10^3/uL Basophils # 0.02 (0-0.4) x10^3/uL Final Diagnosis/Problem List - Final Discharge Diagnosis/Problem (1) Vaginal delivery Current Visit: Yes Status: Acute Code(s): O80 - ENCOUNTER FOR FULL-TERM UNCOMPLICATED DELIVERY (2) bleeding Current Visit: Yes Status: Acute Code(s): O72.1 - OTHER IMMEDIATE HEMORRHAGE - Discharge Disposition: Home, Self-Care Condition: Stable Prescriptions: No Action No Reportable Medications [No Reported Medications] Follow up with: TESSA JAY NP [Primary Care Provider] - MIR YORK DO [ACTIVE STAFF] - 3 weeks
[2022-11-05 11:51] LABS: RPR Non Reactive (Non Reactive)
[2022-11-05] MEDS: Lactated Ringers 1,000 ML IV SCH (12:14)
[2022-11-05] MEDS ORDERED: MOTRIN 400 MG PO PRN (15:00)
[2022-11-05 16:57] VITALS: BP 101/60; PULSE 80; O2SAT 98
--- NOTE | 2022-11-06 11:53 | OP ---
SURGERY DATE/TIME: 11/05/2022 1040 PREOPERATIVE DIAGNOSIS: bleeding. POSTOPERATIVE DIAGNOSIS: bleeding with retained placental tissue. PROCEDURE: Suction D&C. SURGEON: Alf Funez D.O. LEAD ELECTRICAL CONTROLS ENGINEER: Ashanti Alas regional vice president surgical sales. ANESTHESIA: General. ESTIMATED BLOOD LOSS: Approximately 100 cc. COMPLICATIONS: None. INDICATIONS: The risks, benefits, indications and alternatives of the procedure were reviewed with the patient prior to the procedure. The patient understood the risk of infection, bleeding, bowel injury, bladder injury, uterine perforation, pelvic infection, thromboembolic disorder associated with the surgery and desires to have this procedure as a possible means to alleviate her current medical condition. DESCRIPTION OF PROCEDURE AND FINDINGS: At this time the patient is taken to the operating room, given general sedation, placed in the dorsal lithotomy position, prepped and draped in the usual sterile fashion. A weighted speculum is then placed in the patient's vagina and the anterior lip of the cervix is grasped with a single tooth tenaculum. At this point a #10 suction Vacurette was placed in through the endocervical region where it was noted that the patient was having significant clotting prior to arriving at the operating room. The suction instrument was placed in the uterus where the machine was turned on suctioning a significant amount of soft blood clots. After completion of the suctioning, a curette was then placed into the fundus of the uterus and curettage was performed in all quadrants of the uterus retrieving a significant amount of retained placental tissue. From this point after extensive curettage, there was minimal bleeding that was noted and again suction Vacurette was then reinserted into the uterus for continued suctioning and again minimal bleeding was noted. From this point all instruments were removed from the patient's vaginal region. The patient was then taken out of the dorsal lithotomy position, was taken out of anesthesia and was then taken to the recovery room in stable condition. All instruments and laps were accounted for x2.
[2022-11-07 06:31] LABS: HBsAg Screen Negative (Negative)
== END 2022-11-05 16:47 | disposition home or self-care (01) | DRG 798 ==
LOC: OB 04:00 → OBSVTOIN 11-04 04:00
PROVIDERS: ADMIT Obstetrics & Gynecology; ATTEND Obstetrics & Gynecology
PROC: 10E0XZZ Delivery of Products of Conception, External Approach (ICD-10-PCS; principal; 2022-11-05)
PROC: 10D17ZZ Extraction of Products of Conception, Retained, Via Natural or Artificial Opening (ICD-10-PCS; 2022-11-05)
DX: O72.0 Third-stage hemorrhage (principal); Z37.0 Single live birth; Z3A.39 39 weeks gestation of pregnancy; Z20.828 Contact with and (suspected) exposure to other viral communicable diseases
CPT/HCPCS: 36415; 59160; 59409; 59426; 80307; 81001; 81002; 84112; 85025; 86592; 86850; 86870; 86900; 86901; 87086; 87340; 90471; 90715; G0378; J0330; J0595; J0690; J1885; J2250; J2405; J2590; J2704; J3010; A9270-GY

== ENCOUNTER 2024-11-18 12:57 | Emergency (ER) | payer OTHER ==
[2024-11-18 13:48] VITALS: PULSE 77; TEMP 97.9
--- NOTE | 2024-11-18 14:23 | ERPHSYRPT ---
- History of Present Illness Time Seen by Provider: 11/18/24 13:45 Source: patient Exam Limitations: no limitations Patient Subjective Stated Complaint: pt reports having a medically induced 2 months ago and has been bleeding since but not a lot, pt had sex and blood began "pouring" out of her approx 2 weeks ago, anytime she has sex, bright red blood comes out, goes through a super tampon in approx 2 hours, pt c/o of left sided lower abd pain Triage Nursing Assessment: Pt brought self to the ER, vitals wnl, rates pain as 5/10, pulses normal, skin n/w/d, no difficulty breathing denies chest pain, nausea, doesn't appear to be in any distress Physician History: 29-year-old female presents to emergency department for evaluation of postcoital vaginal bleeding patient reports she had. Patient reports she had a "medically induced " 2 months ago. Patient had significant vaginal bleeding post procedure. Bleeding improved. However over the past 2 weeks bleeding is gotten worse more so after intercourse. No trauma no fever no nausea no vomiting no diarrhea no rash. Patient reports going through a super tampon in approximately 2 hours. RN reports some abdominal discomfort however patient had no abdominal pain during my exam nor did she express any concern regarding abdominal pain during my exam. Symptoms are mild to moderate in intensity. No specific worsening or improving factors. Patient otherwise feels well. She voices no other complaints or concerns at this time. Portions of this note were created with voice recognition technology. There may be grammatical, spelling, punctuation or sound alike errors Timing/Duration: today Severity: moderate Modifying Factors: Improves With: nothing Associated Symptoms: denies symptoms Allergies/Adverse Reactions: etonogestrel [From Nexplanon] Adverse Reaction (Severe, Verified 11/18/24 13:45) Hives control implant in arm caused full body hives. Home Medications: Dextroamphetamine/Amphetamine [Dextroamp-Amphet ER 20 mg Cap] 30 mg PO DAILY 11/18/24 [History] Hx Tetanus, Diphtheria Vaccination/Date Given: Yes Hx Influenza Vaccination/Date Given: No Hx Pneumococcal Vaccination/Date Given: No Travel Risk - International Travel Have you traveled outside of the country in past 3 weeks: No - Emerging Infectious Disease Are you exhibiting symptoms associated with any current EIDs: Yes Symptoms: Abdominal Pain - Review of Systems Constitutional: No Symptoms, No Fever, No Chills Eyes: No Symptoms Ears, Nose, & Throat: No Symptoms Respiratory: No Symptoms, No Cough, No Dyspnea Cardiac: No Symptoms, No Chest Pain, No Edema, No Syncope Abdominal/Gastrointestinal: No Symptoms, No Abdominal Pain, No Nausea, No Vomiting, No Diarrhea Genitourinary Symptoms: No Symptoms, No Dysuria Musculoskeletal: No Symptoms, No Back Pain, No Neck Pain Skin: No Symptoms, No Rash Neurological: No Symptoms, No Dizziness, No Focal Weakness, No Sensory Changes Psychological: No Symptoms Endocrine: No Symptoms Hematologic/Lymphatic: No Symptoms Immunological/Allergic: No Symptoms All Other Systems: Reviewed and Negative - Past Medical History Pertinent Past Medical History: Yes Neurological History: No Pertinent History ENT History: No Pertinent History Cardiac History: Other Respiratory History: No Pertinent History Endocrine Medical History: No Pertinent History Musculoskeletal History: No Pertinent History GI Medical History: No Pertinent History History: No Pertinent History Psycho-Social History: No Pertinent History Female Reproductive Disorders: No Pertinent History Other Medical History: Appendectomy 2021. Heart cath at age 12 - Past Surgical History Past Surgical History: Yes Neuro Surgical History: No Pertinent History Cardiac: Cardiac Catheterization Respiratory: No Pertinent History Gastrointestinal: No Pertinent History Genitourinary: No Pertinent History Musculoskeletal: No Pertinent History Female Surgical History: No Pertinent History Other Surgical History: Appendectomy 2021. Heart cath at age 12. - Female History Hx Now: No - Social History Smoking Status: Current every day smoker How long have you smoked: vapes Exposure to second hand smoke: Yes Alcohol Use: None Drug Use: none Patient Lives Alone: No - Social Determinants of Health Will the patient participate in the screening: Yes Do you worry about a steady place to live?: No Do you have any problems with any of the following?: No known problems In the past 12 months,have you had to go without utilities?: No Transportation Issues: No Has anyone in your support network made you feel unsafe?: No Have you or anyone in your house had to go without enough: No - Nursing Vital Signs Nursing Vital Signs: Initial Vital Signs Temperature 97.9 F 11/18/24 13:38 Pulse Rate 77 11/18/24 13:38 Blood Pressure 112/74 11/18/24 13:38 O2 Sat by Pulse Oximetry 99 11/18/24 13:38 Pain Scale Pain Intensity 5 - Physical Exam General Appearance: no apparent distress, alert Eye Exam: PERRL/EOMI, eyes nml inspection Ears, Nose, Throat Exam: normal ENT inspection, moist mucous membranes Neck Exam: normal inspection, full range of motion Respiratory Exam: normal breath sounds, lungs clear, airway intact, No respiratory distress Cardiovascular Exam: regular rate/rhythm, normal heart sounds, normal peripheral pulses Gastrointestinal/Abdomen Exam: soft, normal bowel sounds, No tenderness, No mass Pelvic Exam: normal external exam, other (No active vaginal bleeding during my exam. No foul odor. Normal anatomy. No open or draining lesions observed), No adnexal tenderness, No adnexal mass, No cervical motion tenderness, No vaginal bleeding Back Exam: normal inspection, normal range of motion, No CVA tenderness, No vertebral tenderness Extremity Exam: normal inspection, normal range of motion, pelvis stable Neurologic Exam: alert, oriented x 3, cooperative, normal mood/affect, nml cerebellar function, nml station & gait, sensation nml, No motor deficits Skin Exam: normal color, warm, dry, No rash Lymphatic Exam: No adenopathy SpO2 Interpretation: normal SpO2: 99 O2 Delivery: Room Air - Course Nursing assessment & vital signs reviewed: Yes Ordered Tests: Active Orders 24 hr Category Date Time Status IV Insertion STAT Care 11/18/24 14:03 Active PELVIS TRANS VAGINAL [US] Stat Exams 11/18/24 14:05 Completed CBC W DIFF Stat Lab 11/18/24 15:02 Completed CMP Stat Lab 11/18/24 15:02 Completed CULTURE,URINE Stat Lab 11/18/24 15:16 Received HCG QUALITATIVE, URINE Stat Lab 11/18/24 15:16 Completed PROTIME WITH INR Stat Lab 11/18/24 15:02 Completed PTT Stat Lab 11/18/24 15:02 Completed UA W/RFX UR CULTURE Stat Lab 11/18/24 15:16 Completed Medication Summary Discontinued Medications Generic Name Dose Route Start Last Admin Trade Name Freq PRN Reason Stop Dose Admin Ceftriaxone Sodium 1 gm in 100 mls @ 200 mls/hr 11/18/24 16:05 11/18/24 16:34 Rocephin 1 Gm / 100 Ml Nacl IV 11/18/24 16:34 Not Given STAT ONE Ceftriaxone Sodium Confirm 11/18/24 16:10 Rocephin 1 Gm / 100 Ml Nacl Administered 11/18/24 16:11 Dose 1 gm in 100 mls @ ud IV .STK-MED ONE Nitrofurantoin Macrocrystals 100 mg 11/18/24 16:12 11/18/24 16:16 Nitrofurantoin Macro 100 Mg Capsule PO 11/18/24 16:13 100 mg STAT ONE Administration Nitrofurantoin Macrocrystals Confirm 11/18/24 16:15 Nitrofurantoin Macro 100 Mg Capsule Administered 11/18/24 16:16 Dose 100 mg .ROUTE .STK-MED ONE Lab/Rad Data: Laboratory Result Diagrams 11/18/24 15:02 11/18/24 15:02 Laboratory Results 11/18/24 11/18/24 11/18/24 Range/Units 15:16 15:16 15:02 WBC (3.98-10.04) x10^3/uL RBC (3.93-5.22) x10^6/uL Hgb (11.2-15.7) g/dL Hct (34.1-44.9) % MCV (79.4-94.8) fL MCH (25.6-32.2) pg MCHC (32.2-35.5) g/dL RDW (11.7-14.4) % Plt Count (182-369) x10^3/uL MPV (9.4-12.3) fL Gran % (34.0-71.1) % Immature Gran % (Auto) (0.001-0.429) % Nucleat RBC Rel Count (0.00-0.2) % Eos # (Auto) (0.04-0.36) x10^3/uL Immature Gran # (Auto) (0.001-0.031) x10^3u/L Absolute Lymphs (auto) (1.18-3.74) x10^3/uL Absolute Monos (auto) (0.24-0.86) x10^3/uL Absolute Nucleated RBC (0.00-0.012) x10^3u/L Lymphocytes % (19.3-51.7) % Monocytes % (4.7-12.5) % Eosinophils % (0.7-5.8) % Basophils % (0.1-1.2) % Absolute Granulocytes (1.56-6.13) x10^3/uL Basophils # (0.01-0.08) x10^3/uL PT 10.4 (9.4-12.5) SECONDS INR 0.95 (0.8-3.0) APTT 25.4 (25.1-36.5) SECONDS Sodium (135-145) mmol/L Potassium (3.5-5.1) mmol/L Chloride (98-107) mmol/L Carbon Dioxide (22-30) mmol/L Anion Gap (5-15) MEQ/L BUN (7-17) mg/dL Creatinine (0.52-1.04) mg/dL Estimated GFR ML/MIN Glucose (74-106) mg/dL Calcium (8.4-10.2) mg/dL Total Bilirubin (0.2-1.3) mg/dL AST (14-36) U/L ALT (0-35) U/L Alkaline Phosphatase (38-126) U/L Serum Total Protein (6.3-8.2) g/dL Albumin (3.5-5.0) g/dL Urine Color Yellow (Yellow) Urine Appearance Clear (Clear) Urine pH 7.5 (4.6-8.0) Ur Specific [place] <=1.005 (1.005-1.030) Urine Protein Negative (Negative) Urine Glucose (UA) Negative (Negative) mg/dL Urine Ketones Trace A (Negative) Urine Blood Large A (Negative) Urine Nitrite Negative (Negative) Urine Bilirubin Negative (Negative) Urine Urobilinogen 0.2 (0.2) mg/dL Ur Leukocyte Esterase Moderate A (Negative) U Hyaline Cast (Auto) 3-5 A (0-2) /LPF Urine Microscopic RBC 0-2 (0-5) /HPF Urine Microscopic WBC 6-10 A (0-5) /HPF Ur Epithelial Cells Rare (None Seen) /HPF Urine Bacteria None Seen (None Seen) /HPF Urine Culture Reflexed YES (NO) Urine HCG, Qual NEGATIVE (NEGATIVE) Vaginal Elena Group (NEGATIVE) Elena species (NEGATIVE) Chlamydia DNA Probe (NEGATIVE) N.gonorrhoeae DNA Probe (NEGATIVE) T. vaginalis (PCR) (NEGATIVE) Bact vaginosis (PCR) (NEGATIVE) 11/18/24 11/18/24 11/18/24 Range/Units 15:02 15:02 14:55 WBC 5.5 (3.98-10.04) x10^3/uL RBC 4.26 (3.93-5.22) x10^6/uL Hgb 13.1 (11.2-15.7) g/dL Hct 38.5 (34.1-44.9) % MCV 90.4 (79.4-94.8) fL MCH 30.8 (25.6-32.2) pg MCHC 34.0 (32.2-35.5) g/dL RDW 12.2 (11.7-14.4) % Plt Count 287 (182-369) x10^3/uL MPV 9.7 (9.4-12.3) fL Gran % 57.6 (34.0-71.1) % Immature Gran % (Auto) 0.4 (0.001-0.429) % Nucleat RBC Rel Count 0.0 (0.00-0.2) % Eos # (Auto) 0.04 (0.04-0.36) x10^3/uL Immature Gran # (Auto) 0.02 (0.001-0.031) x10^3u/L Absolute Lymphs (auto) 2.02 (1.18-3.74) x10^3/uL Absolute Monos (auto) 0.23 L (0.24-0.86) x10^3/uL Absolute Nucleated RBC 0.00 (0.00-0.012) x10^3u/L Lymphocytes % 36.7 (19.3-51.7) % Monocytes % 4.2 L (4.7-12.5) % Eosinophils % 0.7 (0.7-5.8) % Basophils % 0.4 (0.1-1.2) % Absolute Granulocytes 3.17 (1.56-6.13) x10^3/uL Basophils # 0.02 (0.01-0.08) x10^3/uL PT (9.4-12.5) SECONDS INR (0.8-3.0) APTT (25.1-36.5) SECONDS Sodium 138 (135-145) mmol/L Potassium 3.6 (3.5-5.1) mmol/L Chloride 105 (98-107) mmol/L Carbon Dioxide 24 (22-30) mmol/L Anion Gap 13.7 (5-15) MEQ/L BUN 7 (7-17) mg/dL Creatinine 0.82 (0.52-1.04) mg/dL Estimated GFR 99.2 ML/MIN Glucose 82 (74-106) mg/dL Calcium 9.2 (8.4-10.2) mg/dL Total Bilirubin 0.70 (0.2-1.3) mg/dL AST 32 (14-36) U/L ALT 23 (0-35) U/L Alkaline Phosphatase 64 (38-126) U/L Serum Total Protein 7.3 (6.3-8.2) g/dL Albumin 4.7 (3.5-5.0) g/dL Urine Color (Yellow) Urine Appearance (Clear) Urine pH (4.6-8.0) Ur Specific [place] (1.005-1.030) Urine Protein (Negative) Urine Glucose (UA) (Negative) mg/dL Urine Ketones (Negative) Urine Blood (Negative) Urine Nitrite (Negative) Urine Bilirubin (Negative) Urine Urobilinogen (0.2) mg/dL Ur Leukocyte Esterase (Negative) U Hyaline Cast (Auto) (0-2) /LPF Urine Microscopic RBC (0-5) /HPF Urine Microscopic WBC (0-5) /HPF Ur Epithelial Cells (None Seen) /HPF Urine Bacteria (None Seen) /HPF Urine Culture Reflexed (NO) Urine HCG, Qual (NEGATIVE) Vaginal Elena Group NOT DETECTED (NEGATIVE) Elena species NOT DETECTED (NEGATIVE) Chlamydia DNA Probe NOT DETECTED (NEGATIVE) N.gonorrhoeae DNA Probe NOT DETECTED (NEGATIVE) T. vaginalis (PCR) NOT DETECTED (NEGATIVE) Bact vaginosis (PCR) NEGATIVE (NEGATIVE) - Progress Progress: improved Progress Note: 29-year-old female presents to our ED with postcoital vaginal bleeding. Physical exam essentially nonremarkable. STI workup negative. UA positive for urinary tract infection. Patient received a oral dose of Macrobid in our ED. A prescription for the same forwarded to patient's pharmacy. Ultrasound negative for retained products of conception. Laboratory workup essentially within normal limits. Hemoglobin normal. Patient resting comfortably. No active pain. Patient advised to follow-up with her cigar head pegger for further evaluation and treatment. Patient voices no other complaints or concerns at this time. Portions of this note were created with voice recognition technology. There may be grammatical, spelling, punctuation or sound alike errors Complexity of problem addressed is moderate acute complicated. No critical care time. Complex of data reviewed and analyzed is extensive. Test ordered chest reviewed results analyzed and correlated clinically with history and physical exam. Risk of complication and or risk of morbidity/mortality of patient management is moderate. A prescription for Macrobid forwarded to patient's pharmacy.. Vital stable. 11/18/24 18:00 Counseled pt/family regarding: lab results, diagnosis, rad results - Departure Departure Disposition: Home Clinical Impression: Vaginal bleeding, Urinary tract infection, Nabothian cyst Condition: Stable Critical Care Time: No Referrals: TESSA JAY NP [Primary Care Provider] - Follow up/PCP as directed MIR YORK DO [ACTIVE STAFF] - Follow up/PCP as directed Additional Instructions: Discharge/Care Plan DANILO BACA was seen on 11/18/24 in the Emergency Room. The patient was counseled regarding Diagnosis,Lab results, Imaging studies, need for follow up and when to return to the Emergency Room. Prescriptions given: Discharge Note I have spoken with the patient and/or caregivers. I have explained the patient's condition, diagnosis and treatment plan based on the information available to me at this time. I have answered the patient's and/or caregiver's questions and addressed any concerns. The patient and/or caregivers have as good understanding of the patient's diagnosis, condition and treatment plan as can be expected at this point. The vital signs have been stable. The patient's condition is stable and appropriate for discharge from the emergency department. The patient will pursue further outpatient evaluation with the primary care physician or other designated or consulting physician as outlined in the discharge instructions. The patient and/or caregivers are agreeable to this plan of care and follow-up instructions have been explained in detail. The patient and/or caregivers have received these instruction. The patient/and or caregivers are aware that any significant change in condition or worsening of symptoms should prompt an immediate return to this or the closest emergency department or call 911. Prescriptions: Nitrofurantoin Macro 100 mg [Macrobid 100MG Capsule] 100 mg PO BID 7 Days #14 cap
[2024-11-18 15:00] VITALS: O2SAT 99
[2024-11-18 15:05] LABS: Absolute Neutrophil Ct (ANC) 3.17 x10^3/uL (1.56-6.13); BASOPHIL % 0.4 % (0.1-1.2); Basophil (Absolute #) 0.02 x10^3/uL (0.01-0.08); Eosinophil % 0.7 % (0.7-5.8); Eosinophil (Absolute #) 0.04 x10^3/uL (0.04-0.36); Hematocrit 38.5 % (34.1-44.9); Hemoglobin 13.1 g/dL (11.2-15.7); IMMATURE GRAN # 0.02 x10^3u/L (0.001-0.031); IMMATURE GRAN % 0.4 % (0.001-0.429); Lymphocyte (Absolute #) 2.02 x10^3/uL (1.18-3.74); Lymphocytes % 36.7 % (19.3-51.7); Mean Cell Volume 90.4 fL (79.4-94.8); Mean Corpuscular Hemoglobin 30.8 pg (25.6-32.2); Mean Platelet Volume 9.7 fL (9.4-12.3); Monocyte (Absolute #) 0.23 x10^3/uL (0.24-0.86); Monocytes % 4.2 % (4.7-12.5); Neutrophil % 57.6 % (34.0-71.1); Platelet Count 287 x10^3/uL (182-369); Red Blood Count 4.26 x10^6/uL (3.93-5.22); Red Cell Distribution Width 12.2 % (11.7-14.4); White Blood Count 5.5 x10^3/uL (3.98-10.04)
[2024-11-18 15:17] LABS: ALBUMIN 4.7 g/dL (3.5-5.0); ANION GAP 13.7 MEQ/L (5-15); BILIRUBIN,TOTAL 0.7 mg/dL (0.2-1.3); Calcium 9.2 mg/dL (8.4-10.2); Creatinine 1 0.82 mg/dL (0.52-1.04); EST GLOMERULAR FILTRATION RATE 99.2 ML/MIN; Potassium 3.6 mmol/L (3.5-5.1); Total Protein 7.3 g/dL (6.3-8.2)
[2024-11-18 15:20] LABS: INR 0.95 (0.8-3.0); PROTIME 10.4 SECONDS (9.4-12.5); PTT 25.4 SECONDS (25.1-36.5)
--- NOTE | 2024-11-18 15:51 | XRAY ---
Indication: Bleeding. Retained products of conception. Two-dimensional transvaginal pelvic sonogram performed. Comparison: None Uterus anteverted measuring 10.4 x 4.5 x 5.5 cm. Lower uterine segment/cervix demonstrates a few sub-5 mm nabothian cysts. No focal solid uterine mass. Endometrial stripe measures 9 mm. No endometrial cavity mass or fluid collection. Right ovary measures 3.3 x 2.7 x 2.0 sonogram left measures 2.2 x 2.3 x 1.9 cm. Normal perfusion bilaterally. Tiny cul-de-sac fluid presumed physiologic from rupture/leaking cyst. Impression: Tiny nabothian cysts and tiny physiologic cul-de-sac fluid. Remaining transvaginal pelvic sonogram is negative.
[2024-11-18 15:56] LABS: Appearance Clear (Clear); Bacteria None Seen /HPF (None Seen); Bilirubin Negative (Negative); Blood Large (Negative); Epithelial Cells Rare /HPF (None Seen); Glucose, Urine Negative (Negative); Ketones Trace (Negative); Leukocyte Esterase Moderate (Negative); Nitrite Negative (Negative); Ph 7.5 (4.6-8.0); Protein,Urine Dip Negative (Negative); RBC 0-2 /HPF (0-5); Specific Gravity <=1.005 (1.005-1.030); Urobilinogen 0.2 mg/dL (0.2)
[2024-11-18 15:56] LABS: Candida Group NOT DETECTED (NEGATIVE); Candida glab/krus NOT DETECTED (NEGATIVE)
[2024-11-18] MEDS ORDERED: ROCEPHIN 1 GM / 100 ML NaCl 0 GM/0 ML IVPB IV ONE (16:10)
[2024-11-18] MEDS ORDERED: Macrobid 100MG Capsule ONE (16:15)
[2024-11-18] MEDS: Macrobid 100MG Capsule PO ONE (16:16)
[2024-11-18] MEDS: ROCEPHIN 1 GM / 100 ML NaCl 1 GM/100 ML IVPB IV ONE (16:34)
[2024-11-18 17:00] LABS: CHLAMYDIA DNA NOT DETECTED (NEGATIVE); GC DNA Probe NOT DETECTED (NEGATIVE)
[2024-11-18 17:45] LABS: HCG URINE TEST NEGATIVE (NEGATIVE)
[2024-11-18 17:59] VITALS: BP 124/83
== END 2024-11-18 18:10 | disposition home or self-care (01) ==
LOC: ED 12:57
DX: N93.9 Abnormal uterine and vaginal bleeding, unspecified (principal); N39.0 Urinary tract infection, site not specified; N88.8 Other specified noninflammatory disorders of cervix uteri; Z79.899 Other long term (current) drug therapy; Z72.0 Tobacco use
CPT/HCPCS: 36415; 76830; 80053; 81001; 81025; 81515; 85025; 85610; 85730; 87086; 87491; 87591; 99284; J0696; A9270-GY

== ENCOUNTER 2024-11-25 05:53 | Day surgery (SDC) | payer OTHER ==
[2024-11-25 06:21] LABS: HCG URINE TEST NEGATIVE (NEGATIVE)
[2024-11-25 06:35] VITALS: RESP 16
[2024-11-25] MEDS ORDERED: Lactated Ringers 1,000 ML IV ONE (06:40)
[2024-11-25] MEDS: CEFAZOLIN 2 GM/100 ML NaCl 2 GM/100 ML IVPB IV SCH (06:41)
[2024-11-25] MEDS ORDERED: CEFAZOLIN 2 GM/100 ML NaCl 2 GM/100 ML IVPB IV ONE (06:41)
[2024-11-25] MEDS: Lactated Ringers 1,000 ML IV SCH (06:41)
[2024-11-25] MEDS ORDERED: dexAMETHasone sodium phosphate ONE (07:56)
[2024-11-25] MEDS ORDERED: propofoL IV ONE (07:56)
[2024-11-25] MEDS ORDERED: Zofran 4 MG/2 ML VIAL ONE (07:56)
[2024-11-25] MEDS ORDERED: Xylocaine-Mpf 2% 5 Ml Vial ONE (07:56)
[2024-11-25] MEDS ORDERED: Versed 2 MG/2 ML Injection ONE (07:57)
[2024-11-25] MEDS ORDERED: SUBLIMAZE 100 MCG/2 ML ONE (07:57)
[2024-11-25] MEDS ORDERED: TORAdol 30 mg Injection ONE (08:48)
[2024-11-25 09:45] VITALS: O2SAT 100
[2024-11-25 09:54] VITALS: TEMP 97.2
[2024-11-25 10:03] VITALS: BP 110/62; PULSE 65
--- NOTE | 2024-11-27 09:11 | OP ---
SURGERY DATE/TIME: 11/25/2024 [id number] PREOPERATIVE DIAGNOSIS: Retained placental tissue. POSTOPERATIVE DIAGNOSIS: Retained placental tissue. PROCEDURE: Suction dilatation and curettage. SURGEON: Rick Funez DO DIRECTOR SYSTEMS: Ashanti Alas ANESTHESIA: General. ESTIMATED BLOOD LOSS: Minimal. COMPLICATIONS: None. INDICATIONS: The risks, benefits, indications, and alternatives of the procedure were reviewed with the patient prior to the procedure. Patient understood the risks of infection, bleeding, bowel injury, bladder injury, uterine perforation, pelvic infection, thromboembolic disorder associated with the surgery, and desires to have the surgery as a possible means to alleviate her current medical condition. DESCRIPTION OF PROCEDURE AND FINDINGS: At this point, patient was taken to the operating room, given general sedation, placed in the dorsal lithotomy position, prepped and draped in the usual sterile fashion. A weighted speculum was then placed in the patient's vagina, and the anterior lip of the cervix was grasped with a single tooth tenaculum. Endocervical dilators were advanced through the endocervical canal as a means to dilate the cervix, and a #7 curved suction Vacurette was then placed into the fundus of the uterus where the machine was turned on for suctioning, retrieving a moderate amount of tissue. After complete retrieval, the suction instrument was removed and a curette was then subsequently placed into the fundus of the uterus and curettage was performed in all quadrants of the uterus, retrieving an additional amount of tissue. From this point, hemostasis was obtained. There was no bleeding that was noted from the cervix at this point after completion and; from this point, all instruments were removed from the patient's vaginal region. The patient was then taken out of the dorsal lithotomy position, was taken out of anesthesia, and was then taken to the recovery room in stable condition. All instruments and laps were accounted for x2.
== END 2024-11-25 10:07 | disposition home or self-care (01) ==
LOC: SDC 05:53
PROVIDERS: ATTEND Obstetrics & Gynecology
DX: O73.0 Retained placenta without hemorrhage (principal)
CPT/HCPCS: 58120; 81025; 93005; J0690; J1100; J1885; J2250; J2405; J2704; J3010